=== PATIENT | female | born 1935 | race African-American/Black ===

== ENCOUNTER → 2018-02-21 | Outpatient (CLI) | payer MEDICARE | END | disposition home or self-care (01) | LOC: MAMMO 09:54 | PROVIDERS: ATTEND Specialist | DX: Z12.31 Encounter for screening mammogram for malignant neoplasm of breast (principal) | CPT/HCPCS: 77067 ==

== ENCOUNTER 2018-07-30 12:00 | Emergency (ER) | payer MEDICARE, BC ==
[~2018-07-30] VITALS: Ht 165.1 cm; Wt 66.0 kg
[2018-07-30] MEDS ORDERED: ACETAMINOPHEN 325MG TABLET PO ONE (14:30)
[2018-07-30 17:20] VITALS: BP 178/81
== END 2018-07-30 17:22 | disposition home or self-care (01) ==
LOC: ER 12:00
DX: M54.9 Dorsalgia, unspecified (principal); E11.9 Type 2 diabetes mellitus without complications; E78.00 Pure hypercholesterolemia, unspecified; I10 Essential (primary) hypertension; Z87.09 Personal history of other diseases of the respiratory system; Z87.440 Personal history of urinary (tract) infections; Z98.890 Other specified postprocedural states
CPT/HCPCS: 72110; 72170; 99283

== ENCOUNTER 2018-09-19 09:18 | Inpatient (IN) | payer BC, MEDICARE ==
[~2018-09-19] VITALS: Ht 157.5 cm; Wt 60.0 kg
[2018-09-19 10:57] LABS: BASOPHILS % 0.7 % (0.0-2.0); EOSINOPHILS % 0.3 % (0.0-5.0); HEMATOCRIT. 36.1 % (36.0-48.0); LYMPHOCYTES % 28.3 % (20.0-50.0); MEAN CORPUSCULAR HEMOGLOBIN 30.9 pg (28.0-32.0); MEAN CORPUSCULAR VOLUME 93.4 fL (81.0-99.0); MONOCYTES % 7.6 % (2.0-8.0); NEUTROPHILS % 63.1 % (40.0-76.0); PLATELET 268 x1000/uL (130-400); RED BLOOD CELL COUNT 3.87 mill/uL (4.2-5.4); RED CELL DISTRIBUTION WIDTH 13.7 % (11.6-14.6)
[2018-09-19 11:04] LABS: CHLORIDE 101 mEq/L (98-107)
[2018-09-19] MEDS ORDERED: NITROGLYCERIN 0.4MG TABLET SL SL PRN (11:45)
[2018-09-19] MEDS ORDERED: FUROSEMIDE 40MG/4ML VIAL IV ONE (11:45)
[2018-09-19] MEDS ORDERED: ASPIRIN 81MG TABLET PO ONE (11:45)
[2018-09-19] MEDS ORDERED: DIPHENHYDRAMINE 50MG/ML VIAL IV PRN (14:15)
[2018-09-19] MEDS ORDERED: LORAZEPAM 2MG/ML CPJ IV PRN (14:15)
[2018-09-19] MEDS ORDERED: IPRATROPIUM/ALBUTEROL 0.5-3(2.5)MG/3ML NEB INH PRN (14:15)
[2018-09-19] MEDS ORDERED: HYDROCODONE/ACETAMINOPHEN 5/325MG TABLET PO PRN (14:15)
[2018-09-19] MEDS ORDERED: CLONIDINE 0.1MG TABLET PO PRN (14:15)
[2018-09-19] MEDS ORDERED: ONDANSETRON HCL 4MG/2ML INJ IV PRN (14:15)
[2018-09-19] MEDS ORDERED: GUAIFENESIN 200MG/10ML SUGAR FREE UDC PO PRN (14:15)
[2018-09-19] MEDS ORDERED: MAGNESIUM/ALUMINUM HYDROXIDE/SIMETHICONE 30ML UDC PO PRN (14:15)
[2018-09-19] MEDS ORDERED: NA PHOS,M-B/NA PHOS,DI-BA ENEMA 118ML PR PRN (14:15)
[2018-09-19] MEDS ORDERED: HYDROMORPHONE HCL/PF 2MG/ML CPJ IV PRN (14:15)
[2018-09-19] MEDS ORDERED: DOCUSATE SODIUM 100MG CAPSULE PO PRN (14:15)
[2018-09-19 14:38] VITALS: BP 148/80
[2018-09-19] MEDS: NIFEDIPINE XL 60MG TAB PO SCH (15:51)
[2018-09-19] MEDS: LOSARTAN POTASSIUM 50 MG TABLET PO SCH (15:52)
[2018-09-19] MEDS: FUROSEMIDE 40MG/4ML VIAL IVP SCH (15:52)
[2018-09-19] MEDS: ENOXAPARIN 40MG/0.4ML SYR SUBCUT SCH (15:52)
[2018-09-19 16:00] VITALS: BP 140/57
[2018-09-19 20:00] VITALS: BP 122/46
[2018-09-19] MEDS: CARVEDILOL 3.125 MG TABLET PO SCH (20:52)
[2018-09-20] VITALS (7 sets, daily range): BP systolic 120–165; BP diastolic 50–69
[2018-09-20 06:45] LABS: BASOPHILS % 0.4 % (0.0-2.0); EOSINOPHILS % 1.2 % (0.0-5.0); HEMATOCRIT. 33.2 % (36.0-48.0); HEMOGLOBIN. 11.1 g/dL (12.0-16.0); LYMPHOCYTES % 47.8 % (20.0-50.0); MEAN CORPUSCULAR HEMOGLOBIN 31.1 pg (28.0-32.0); MEAN CORPUSCULAR VOLUME 93.1 fL (81.0-99.0); MEAN PLATELET VOLUME 8.6 fl (7.4-10.4); MONOCYTES % 12.6 % (2.0-8.0); PLATELET 227 x1000/uL (130-400); RED BLOOD CELL COUNT 3.56 mill/uL (4.2-5.4); RED CELL DISTRIBUTION WIDTH 13.5 % (11.6-14.6)
[2018-09-20 07:19] LABS: CHLORIDE 101 mEq/L (98-107)
[2018-09-20 07:35] LABS: LDL CHOLESTEROL 122 mg/dL (5-100)
[2018-09-20 07:37] LABS: HDL CHOLESTEROL 58 mg/dL (40-59); T4 FREE 1.19 ng/dL (0.76-1.46)
[2018-09-20] MEDS: FUROSEMIDE 40MG/4ML VIAL IVP SCH (08:24)
[2018-09-20] MEDS: CARVEDILOL 3.125 MG TABLET PO SCH ×2 (08:25→22:13)
[2018-09-20] MEDS: NIFEDIPINE XL 60MG TAB PO SCH ×2 (08:25→22:14)
[2018-09-20] MEDS: LOSARTAN POTASSIUM 50 MG TABLET PO SCH ×2 (08:25→22:14)
[2018-09-20] MEDS: ASPIRIN 81MG EC TABLET PO SCH (08:26)
[2018-09-20] MEDS ORDERED: FUROSEMIDE 40MG/4ML VIAL IV SCH (09:00)
[2018-09-20] MEDS: BUDESONIDE 0.5MG/2ML NEB HHN SCH ×2 (10:06→20:58)
[2018-09-20] MEDS: INSULIN LISPRO 100 UNITS/ML SUBCUT SCH ×3 (13:10→22:29)
[2018-09-20] MEDS ORDERED: DEXTROSE 50% WATER 50ML SYRINGE IV PRN (13:15)
[2018-09-20] MEDS: IPRATROPIUM/ALBUTEROL 0.5-3(2.5)MG/3ML NEB HHN SCH ×2 (15:25→20:58)
[2018-09-20] MEDS: ENOXAPARIN 40MG/0.4ML SYR SUBCUT SCH (16:00)
[2018-09-20] MEDS: BLOOD SUGAR DIAGNOSTIC STRIP TEST SCH ×2 (18:31→22:29)
[2018-09-21] VITALS: BP 135/51
[2018-09-21] MEDS: ACETYLCYSTEINE 100MG/ML 10% VIAL 4ML INH SCH ×2 (00:56→08:36)
[2018-09-21] MEDS: IPRATROPIUM/ALBUTEROL 0.5-3(2.5)MG/3ML NEB HHN SCH ×2 (00:57→08:37)
[2018-09-21 04:00] VITALS: BP 144/62
[2018-09-21 06:16] LABS: CLARITY URINE TURBID (CLEAR); COLOR URINE YELLOW (YELLOW); KETONES URINE NEGATIVE (NEGATIVE); LEUKOCYTE ESTERASE URINE 3+ (NEGATIVE); NITRITE URINE NEGATIVE (NEGATIVE); OCCULT BLOOD URINE 1+ (NEGATIVE); PROTEIN URINE NEGATIVE (NEGATIVE); SPECIFIC GRAVITY URINE 1.012 (1.005-1.030); UROBILINOGEN URINE 0.2 E.U./dL (0.2-1.0)
[2018-09-21 06:31] LABS: *COCAINE SCREEN URINE NEGATIVE (NEGATIVE)
[2018-09-21 06:32] LABS: *AMPHETAMINES SCREEN URINE NEGATIVE (NEGATIVE); *BARBITURATES SCREEN URINE NEGATIVE (NEGATIVE); *BENZODIAZEPINES SCREEN URINE NEGATIVE (NEGATIVE); CANNABINOID URINE SCREEN NEGATIVE (NEGATIVE); METHADONE URINE SCREEN NEGATIVE (NEGATIVE); OPIATES URINE SCREEN NEGATIVE (NEGATIVE); PHENCYCLIDINE URINE SCREEN NEGATIVE (NEGATIVE)
[2018-09-21] MEDS: BLOOD SUGAR DIAGNOSTIC STRIP TEST SCH (06:56)
[2018-09-21 07:38] LABS: BASOPHILS % 0.5 % (0.0-2.0); EOSINOPHILS % 0.8 % (0.0-5.0); HEMOGLOBIN. 10.9 g/dL (12.0-16.0); LYMPHOCYTES % 44.5 % (20.0-50.0); MEAN CORPUSCULAR VOLUME 93.6 fL (81.0-99.0); MONOCYTES % 13.5 % (2.0-8.0); NEUTROPHILS % 40.7 % (40.0-76.0); PLATELET 245 x1000/uL (130-400); RED BLOOD CELL COUNT 3.52 mill/uL (4.2-5.4); RED CELL DISTRIBUTION WIDTH 13.4 % (11.6-14.6)
[2018-09-21 08:00] VITALS: BP 130/55
[2018-09-21] MEDS: INSULIN LISPRO 100 UNITS/ML SUBCUT SCH (08:10)
[2018-09-21] MEDS: CARVEDILOL 3.125 MG TABLET PO SCH (08:25)
[2018-09-21] MEDS: LOSARTAN POTASSIUM 50 MG TABLET PO SCH (08:25)
[2018-09-21] MEDS: NIFEDIPINE XL 60MG TAB PO SCH (08:26)
[2018-09-21] MEDS: FUROSEMIDE 40MG/4ML VIAL IVP SCH (08:36)
[2018-09-21] MEDS: ASPIRIN 81MG EC TABLET PO SCH (08:36)
[2018-09-21] MEDS: BUDESONIDE 0.5MG/2ML NEB HHN SCH (08:37)
[2018-09-21 09:23] LABS: CHLORIDE 101 mEq/L (98-107)
[2018-09-21 11:22] VITALS: BP 135/58
[2018-09-21 12:00] VITALS: BP 145/49
== END 2018-09-21 13:24 | disposition home or self-care (01) | DRG 291 ==
LOC: ER 10:32 → 7WST 12:09 → EDBEDREQ 12:11 → EDBEDREQTM 12:11 → ENRESERV 13:25 → EDBEDREQ 14:03
PROVIDERS: ADMIT Specialist; ATTEND Specialist
PROC: 02HV33Z Insertion of Infusion Device into Superior Vena Cava, Percutaneous Approach (ICD-10-PCS; principal; 2018-09-16)
PROC: B5181ZA Fluoroscopy of Superior Vena Cava using Low Osmolar Contrast, Guidance (ICD-10-PCS; 2018-09-16)
DX: I11.0 Hypertensive heart disease with heart failure (principal); J96.00 Acute respiratory failure, unspecified whether with hypoxia or hypercapnia; J44.1 Chronic obstructive pulmonary disease with (acute) exacerbation; E27.9 Disorder of adrenal gland, unspecified; I27.20 Pulmonary hypertension, unspecified; I50.33 Acute on chronic diastolic (congestive) heart failure; E11.9 Type 2 diabetes mellitus without complications; I25.10 Atherosclerotic heart disease of native coronary artery without angina pectoris; E78.5 Hyperlipidemia, unspecified; Z82.49 Family history of ischemic heart disease and other diseases of the circulatory system; Z91.14 Patient's other noncompliance with medication regimen; Z98.84 Bariatric surgery status
CPT/HCPCS: 36415; 71045; 80048; 80061; 80305; 82962; 83036; 83735; 83880; 84439; 84443; 84484; 93005; 93306; 94640; 96374; 99291; J1650; J1815; J1940; J7608; J7620; J7626

== ENCOUNTER 2018-10-30 13:32 | Inpatient (IN) | payer BC ==
[~2018-10-30] VITALS: Ht 157.5 cm; Wt 64.0 kg
[2018-10-30] MEDS ORDERED: SODIUM CHLORIDE 0.9% 1000ML BAG (SEPSIS BOLUS) IV ONE (14:30)
[2018-10-30 14:59] LABS: BASOPHILS % 0.1 % (0.0-2.0); HEMOGLOBIN. 12.1 g/dL (12.0-16.0); LYMPHOCYTES % 7.4 % (20.0-50.0); MEAN CORPUSCULAR HEMOGLOBIN 30.8 pg (28.0-32.0); MEAN CORPUSCULAR VOLUME 93.8 fL (81.0-99.0); MEAN PLATELET VOLUME 8.4 fl (7.4-10.4); MONOCYTES % 2.7 % (2.0-8.0); NEUTROPHILS % 89.8 % (40.0-76.0); PLATELET 265 x1000/uL (130-400); RED BLOOD CELL COUNT 3.94 mill/uL (4.2-5.4); RED CELL DISTRIBUTION WIDTH 13.6 % (11.6-14.6)
[2018-10-30 15:08] LABS: D-DIMER 1.92 mg/L FEU (<0.50); PARTIAL THROMBOPLASTIN TIME 24.9 sec (23.4-31.0); PROTHROMBIN TIME 10.2 sec (9.1-11.1)
[2018-10-30 15:15] LABS: CHLORIDE 101 mEq/L (98-107)
[2018-10-30] MEDS ORDERED: CLONIDINE 0.2MG TABLET PO ONE (15:30)
[2018-10-30] MEDS ORDERED: LEVOFLOXACIN 750MG PREMIX 150 ML IV ONE (15:45)
[2018-10-30] MEDS ORDERED: ASPIRIN 325MG EC TABLET PO ONE (15:45)
[2018-10-30 17:35] LABS: CLARITY URINE CLOUDY (CLEAR); COLOR URINE YELLOW (YELLOW); KETONES URINE TRACE (NEGATIVE); LEUKOCYTE ESTERASE URINE 2+ (NEGATIVE); NITRITE URINE NEGATIVE (NEGATIVE); OCCULT BLOOD URINE TRACE (NEGATIVE); PROTEIN URINE 1+ (NEGATIVE); SPECIFIC GRAVITY URINE 1.019 (1.005-1.030); UROBILINOGEN URINE 0.2 E.U./dL (0.2-1.0)
[2018-10-30] MEDS ORDERED: ENOXAPARIN 60MG/0.6ML SYR SUBCUT ONE (17:45)
[2018-10-30] MEDS ORDERED: IOHEXOL-350 100 ML BOTTLE ONE (18:16)
[2018-10-30] MEDS ORDERED: FUROSEMIDE 40MG/4ML VIAL IVP ONE (19:45)
[2018-10-30 22:15] VITALS: BP 120/57
[2018-10-30 22:21] VITALS: BP 120/57
[2018-10-31] VITALS (10 sets, daily range): BP systolic 113–148; BP diastolic 42–69
[2018-10-31] MEDS ORDERED: MORPHINE SULFATE 4 MG/ML CPJ (NOT FOR IM USE) IV PRN
[2018-10-31] MEDS ORDERED: DEXTROSE 50% WATER 50ML SYRINGE IV PRN
[2018-10-31] MEDS: BLOOD SUGAR DIAGNOSTIC STRIP TEST SCH ×4 (01:47→20:48)
[2018-10-31] MEDS: INSULIN LISPRO 100 UNITS/ML SUBCUT SCH ×2 (01:59→20:49)
[2018-10-31] MEDS: NITROGLYCERIN OINT 1GM/INCH UDPKT TD SCH (02:00)
[2018-10-31] MEDS: IPRATROPIUM/ALBUTEROL 0.5-3(2.5)MG/3ML NEB HHN SCH ×5 (04:31→20:54)
[2018-10-31 06:49] LABS: BASOPHILS % 0.7 % (0.0-2.0); EOSINOPHILS % 0.5 % (0.0-5.0); HEMATOCRIT. 31.4 % (36.0-48.0); HEMOGLOBIN. 10.4 g/dL (12.0-16.0); LYMPHOCYTES % 37.7 % (20.0-50.0); MEAN CORPUSCULAR HEMOGLOBIN 30.9 pg (28.0-32.0); MEAN CORPUSCULAR VOLUME 93.2 fL (81.0-99.0); MEAN PLATELET VOLUME 8.2 fl (7.4-10.4); NEUTROPHILS % 52.1 % (40.0-76.0); PLATELET 225 x1000/uL (130-400); RED BLOOD CELL COUNT 3.37 mill/uL (4.2-5.4); RED CELL DISTRIBUTION WIDTH 13.8 % (11.6-14.6)
[2018-10-31 07:06] LABS: CHLORIDE 104 mEq/L (98-107)
[2018-10-31 07:15] LABS: LDL CHOLESTEROL 115 mg/dL (5-100)
[2018-10-31 07:17] LABS: HDL CHOLESTEROL 65 mg/dL (40-59)
[2018-10-31] MEDS ORDERED: METOPROLOL TARTRATE 25MG TABLET PO SCH (09:00)
[2018-10-31] MEDS ORDERED: LEVOFLOXACIN 500MG PREMIX 100 ML IV SCH (09:00)
[2018-10-31] MEDS ORDERED: ENOXAPARIN 80MG/0.8ML SYR SUBCUT SCH (09:00)
[2018-10-31] MEDS ORDERED: ASPIRIN 325MG TABLET PO SCH (09:00)
[2018-10-31] MEDS: LOSARTAN POTASSIUM 25 MG TABLET PO SCH (11:30)
[2018-10-31] MEDS ORDERED: POTASSIUM CHLORIDE 20MEQ TABLET SR PO NR (11:30)
[2018-10-31] MEDS: FUROSEMIDE 40MG/4ML VIAL IVP SCH (13:54)
[2018-10-31] MEDS ORDERED: LEVOFLOXACIN 250MG PREMIX 50 ML IV SCH (18:00)
[2018-10-31] MEDS: METOPROLOL TARTRATE 50MG TABLET PO SCH (20:47)
[2018-10-31] MEDS: AMLODIPINE 5MG TABLET PO SCH (20:47)
[2018-10-31] MEDS ORDERED: ATORVASTATIN CALCIUM 40MG TABLET PO SCH (21:00)
[2018-11-01] VITALS (8 sets, daily range): BP systolic 140–160; BP diastolic 65–96
[2018-11-01] MEDS: IPRATROPIUM/ALBUTEROL 0.5-3(2.5)MG/3ML NEB HHN SCH ×4 (00:18→11:56)
[2018-11-01] MEDS: BLOOD SUGAR DIAGNOSTIC STRIP TEST SCH ×2 (06:40→11:34)
[2018-11-01 06:50] LABS: HEMATOCRIT. 31.8 % (36.0-48.0); HEMOGLOBIN. 10.6 g/dL (12.0-16.0); MEAN CORPUSCULAR HEMOGLOBIN 30.9 pg (28.0-32.0); MEAN CORPUSCULAR VOLUME 93.3 fL (81.0-99.0); MEAN PLATELET VOLUME 8.7 fl (7.4-10.4); PLATELET 230 x1000/uL (130-400); RED BLOOD CELL COUNT 3.41 mill/uL (4.2-5.4)
[2018-11-01 07:36] LABS: CHLORIDE 104 mEq/L (98-107)
[2018-11-01] MEDS: INSULIN LISPRO 100 UNITS/ML SUBCUT SCH ×2 (08:42→13:01)
[2018-11-01] MEDS: FUROSEMIDE 40MG/4ML VIAL IVP SCH (08:44)
[2018-11-01] MEDS ORDERED: ASPIRIN 81MG TABLET PO SCH (09:00)
[2018-11-01] MEDS: AMLODIPINE 5MG TABLET PO SCH (09:00)
[2018-11-01] MEDS: LOSARTAN POTASSIUM 25 MG TABLET PO SCH (09:00)
[2018-11-01] MEDS ORDERED: ENOXAPARIN 40MG/0.4ML SYR SUBCUT SCH (09:00)
[2018-11-01] MEDS: METOPROLOL TARTRATE 50MG TABLET PO SCH (09:00)
[2018-11-01] MEDS: NITROGLYCERIN OINT 1GM/INCH UDPKT TD SCH (10:00)
[2018-11-01 13:30] LABS: PLATELET ESTIMATE NORMAL
== END 2018-11-01 15:21 | disposition home or self-care (01) | DRG 871 ==
LOC: ER 13:32 → 3WST 17:39 → ENRESERV 18:46
PROVIDERS: ADMIT Internal Medicine; ATTEND Internal Medicine
DX: A41.9 Sepsis, unspecified organism (principal); I50.33 Acute on chronic diastolic (congestive) heart failure; I21.4 Non-ST elevation (NSTEMI) myocardial infarction; J18.9 Pneumonia, unspecified organism; N39.0 Urinary tract infection, site not specified; I16.0 Hypertensive urgency; E78.5 Hyperlipidemia, unspecified; E11.9 Type 2 diabetes mellitus without complications; E78.00 Pure hypercholesterolemia, unspecified; I11.0 Hypertensive heart disease with heart failure; I25.10 Atherosclerotic heart disease of native coronary artery without angina pectoris; I25.2 Old myocardial infarction; I27.20 Pulmonary hypertension, unspecified; Z82.49 Family history of ischemic heart disease and other diseases of the circulatory system; Z91.19 Patient's noncompliance with other medical treatment and regimen; Z98.84 Bariatric surgery status
CPT/HCPCS: 36415; 71045; 71275; 80048; 80061; 82962; 83036; 83605; 83735; 84145; 84484; 85379; 87804; 93005; 93306; 94640; 96374; 96375; 99285; J1650; J1815; J1940; J1956; J7030; J7050; J7620; Q9967

== ENCOUNTER 2019-07-01 11:34 | Inpatient (IN) | payer BC ==
[~2019-07-01] VITALS: Ht 157.5 cm; Wt 61.7 kg
[2019-07-01] MEDS ORDERED: ASPIRIN 81MG TABLET PO ONE (13:30)
[2019-07-01 14:49] LABS: BASOPHILS % 0.8 % (0.0-2.0); EOSINOPHILS % 0.6 % (0.0-5.0); HEMATOCRIT. 36.2 % (36.0-48.0); HEMOGLOBIN. 12.1 g/dL (12.0-16.0); LYMPHOCYTES % 29.7 % (20.0-50.0); MEAN CORPUSCULAR HEMOGLOBIN 30.8 pg (28.0-32.0); MEAN CORPUSCULAR VOLUME 92.4 fL (81.0-99.0); MEAN PLATELET VOLUME 8.2 fl (7.4-10.4); MONOCYTES % 4.9 % (2.0-8.0); PLATELET 220 x1000/uL (130-400); RED BLOOD CELL COUNT 3.92 mill/uL (4.2-5.4); RED CELL DISTRIBUTION WIDTH 14.6 % (11.6-14.6)
[2019-07-01 15:00] LABS: CHLORIDE 105 mEq/L (98-107)
[2019-07-01] MEDS ORDERED: CEFTRIAXONE SODIUM 1 G/VIAL IM ONE (16:45)
[2019-07-01] MEDS ORDERED: DOCUSATE SODIUM 100MG CAPSULE PO PRN (20:00)
[2019-07-01] MEDS ORDERED: DIPHENHYDRAMINE 50MG/ML VIAL IV PRN (20:00)
[2019-07-01] MEDS ORDERED: GUAIFENESIN 200MG/10ML SUGAR FREE UDC PO PRN (20:00)
[2019-07-01] MEDS ORDERED: CEFTRIAXONE 1 G PREMIX 50 ML IV SCH (20:00)
[2019-07-01] MEDS ORDERED: ACETAMINOPHEN 325MG TABLET PO PRN (20:00)
[2019-07-01] MEDS ORDERED: ONDANSETRON HCL 4MG/2ML INJ IV PRN (20:00)
[2019-07-01] MEDS ORDERED: MAGNESIUM/ALUMINUM HYDROXIDE/SIMETHICONE 30ML UDC PO PRN (20:00)
[2019-07-01] MEDS ORDERED: IPRATROPIUM/ALBUTEROL 0.5-3(2.5)MG/3ML NEB NEB PRN (20:00)
[2019-07-01] MEDS ORDERED: CLONIDINE 0.1MG TABLET PO PRN (20:00)
[2019-07-01 20:26] LABS: CLARITY URINE CLEAR (CLEAR); COLOR URINE YELLOW (YELLOW); KETONES URINE NEGATIVE (NEGATIVE); LEUKOCYTE ESTERASE URINE 3+ (NEGATIVE); NITRITE URINE NEGATIVE (NEGATIVE); OCCULT BLOOD URINE NEGATIVE (NEGATIVE); PROTEIN URINE TRACE (NEGATIVE); UROBILINOGEN URINE 0.2 E.U./dL (0.2-1.0)
[2019-07-01] MEDS ORDERED: ZOLPIDEM TARTRATE 5MG TABLET PO PRN (21:00)
[2019-07-01 22:05] VITALS: BP 158/72
[2019-07-01] MEDS ORDERED: DEXTROSE 50% WATER 50ML SYRINGE IV PRN ×2 (22:20→22:21)
[2019-07-01] MEDS ORDERED: HYDROCODONE/ACETAMINOPHEN 5/325MG TABLET PO PRN (22:21)
[2019-07-02] VITALS (13 sets, daily range): BP systolic 116–168; BP diastolic 56–88
[2019-07-02] MEDS: BLOOD SUGAR DIAGNOSTIC STRIP TEST SCH ×4 (06:33→21:00)
[2019-07-02] MEDS: INSULIN LISPRO 100 UNITS/ML SUBCUT SCH ×4 (07:20→21:00)
[2019-07-02] MEDS: ENOXAPARIN 40MG/0.4ML SYR SUBCUT SCH (08:50)
[2019-07-02] MEDS: PANTOPRAZOLE SODIUM 40 MG/VIAL IV SCH (08:50)
[2019-07-02 11:36] LABS: BASOPHILS % 0.3 % (0.0-2.0); EOSINOPHILS % 0.7 % (0.0-5.0); HEMATOCRIT. 36.5 % (36.0-48.0); HEMOGLOBIN. 12.1 g/dL (12.0-16.0); LYMPHOCYTES % 33.8 % (20.0-50.0); MEAN CORPUSCULAR HEMOGLOBIN 30.9 pg (28.0-32.0); MEAN CORPUSCULAR VOLUME 93.1 fL (81.0-99.0); MONOCYTES % 6.7 % (2.0-8.0); NEUTROPHILS % 58.5 % (40.0-76.0); PLATELET 223 x1000/uL (130-400); RED BLOOD CELL COUNT 3.92 mill/uL (4.2-5.4); RED CELL DISTRIBUTION WIDTH 15.1 % (11.6-14.6)
[2019-07-02 11:38] LABS: CHLORIDE 104 mEq/L (98-107)
[2019-07-02 11:46] LABS: PHOSPHORUS 3.5 mg/dL (2.5-4.9)
[2019-07-02 11:47] LABS: LDL CHOLESTEROL 126 mg/dL (5-100)
[2019-07-02 11:50] LABS: HDL CHOLESTEROL 72 mg/dL (40-59)
[2019-07-02] MEDS: FUROSEMIDE 40MG/4ML VIAL IVP SCH (12:00)
[2019-07-02] MEDS: LISINOPRIL 10MG TABLET PO SCH ×2 (12:00→22:18)
[2019-07-02] MEDS: HYDRALAZINE HCL 25MG TABLET PO SCH ×2 (14:00→22:17)
[2019-07-02] MEDS ORDERED: METF-414 PO (16:52)
[2019-07-02] MEDS ORDERED: AMLO5TAB4 PO (16:52)
[2019-07-02] MEDS ORDERED: CEFTRIAXONE 1 G PREMIX 50 ML IV SCH (17:00)
[2019-07-02] MEDS: AMLODIPINE 5MG TABLET PO SCH (22:18)
[2019-07-03] VITALS (12 sets, daily range): BP systolic 109–143; BP diastolic 56–71
[2019-07-03] MEDS: HYDRALAZINE HCL 25MG TABLET PO SCH ×2 (06:00→14:00)
[2019-07-03] MEDS: BLOOD SUGAR DIAGNOSTIC STRIP TEST SCH ×2 (06:45→11:56)
[2019-07-03 06:59] LABS: BASOPHILS % 0.5 % (0.0-2.0); EOSINOPHILS % 1.3 % (0.0-5.0); HEMATOCRIT. 32.2 % (36.0-48.0); HEMOGLOBIN. 10.7 g/dL (12.0-16.0); LYMPHOCYTES % 42.3 % (20.0-50.0); MEAN CORPUSCULAR HEMOGLOBIN 30.8 pg (28.0-32.0); MEAN CORPUSCULAR VOLUME 92.4 fL (81.0-99.0); MEAN PLATELET VOLUME 8.8 fl (7.4-10.4); MONOCYTES % 8.3 % (2.0-8.0); NEUTROPHILS % 47.6 % (40.0-76.0); PLATELET 201 x1000/uL (130-400); RED BLOOD CELL COUNT 3.48 mill/uL (4.2-5.4); RED CELL DISTRIBUTION WIDTH 14.5 % (11.6-14.6)
[2019-07-03] MEDS: INSULIN LISPRO 100 UNITS/ML SUBCUT SCH ×2 (07:20→12:11)
[2019-07-03 07:30] LABS: CHLORIDE 107 mEq/L (98-107)
[2019-07-03] MEDS: ENOXAPARIN 40MG/0.4ML SYR SUBCUT SCH (08:29)
[2019-07-03] MEDS: AMLODIPINE 5MG TABLET PO SCH (08:30)
[2019-07-03] MEDS: PANTOPRAZOLE SODIUM 40 MG/VIAL IV SCH (08:30)
[2019-07-03] MEDS: FUROSEMIDE 40MG/4ML VIAL IVP SCH (08:30)
[2019-07-03] MEDS: LISINOPRIL 10MG TABLET PO SCH (09:00)
[2019-07-04] MEDS ORDERED: FAMOTIDINE 20MG TABLET PO SCH (09:00)
== END 2019-07-03 16:41 | disposition home or self-care (01) | DRG 871 ==
LOC: ER 11:34 → 3WST 18:04 → ENRESERV 21:06 → EDBEDREQSVC 21:17 → EDBEDREQTM 21:17 → ENRESERV 21:24
PROVIDERS: ADMIT Family Medicine Adult Medicine; ATTEND Family Medicine Adult Medicine
DX: A41.9 Sepsis, unspecified organism (principal); I21.4 Non-ST elevation (NSTEMI) myocardial infarction; I50.43 Acute on chronic combined systolic (congestive) and diastolic (congestive) heart failure; J18.9 Pneumonia, unspecified organism; J96.00 Acute respiratory failure, unspecified whether with hypoxia or hypercapnia; N39.0 Urinary tract infection, site not specified; I25.10 Atherosclerotic heart disease of native coronary artery without angina pectoris; I11.0 Hypertensive heart disease with heart failure; E11.9 Type 2 diabetes mellitus without complications; E78.5 Hyperlipidemia, unspecified; I27.20 Pulmonary hypertension, unspecified; D71 Functional disorders of polymorphonuclear neutrophils; E78.00 Pure hypercholesterolemia, unspecified; E27.8 Other specified disorders of adrenal gland; I08.1 Rheumatic disorders of both mitral and tricuspid valves; Z79.82 Long term (current) use of aspirin; Z91.14 Patient's other noncompliance with medication regimen; I25.2 Old myocardial infarction; Z91.19 Patient's noncompliance with other medical treatment and regimen; Z82.49 Family history of ischemic heart disease and other diseases of the circulatory system; Z98.84 Bariatric surgery status; Z95.5 Presence of coronary angioplasty implant and graft
CPT/HCPCS: 36415; 71045; 80048; 80061; 81003; 82962; 83036; 83735; 83880; 84100; 84443; 84484; 93005; 93306; 93970; 97161; 99285; C9113; J0696; J1650; J1940

== ENCOUNTER 2019-09-05 16:04 | Emergency (ER) | payer BC ==
[~2019-09-05] VITALS: Ht 157.5 cm; Wt 63.5 kg
[~2019-09-05 16:04] MED LIST: AMLO5TAB4 PO; METF-414 PO
[2019-09-06 03:42] VITALS: BP 164/64
== END 2019-09-06 03:43 | disposition home or self-care (01) ==
LOC: ER 16:04
DX: M47.896 Other spondylosis, lumbar region (principal); I31.3 Pericardial effusion (noninflammatory); J90 Pleural effusion, not elsewhere classified; M48.07 Spinal stenosis, lumbosacral region; D21.9 Benign neoplasm of connective and other soft tissue, unspecified; N20.0 Calculus of kidney; I10 Essential (primary) hypertension; E11.9 Type 2 diabetes mellitus without complications
CPT/HCPCS: 72131; 99284

== ENCOUNTER 2020-05-20 11:20 | Inpatient (IN) | payer BC ==
[~2020-05-20] VITALS: Ht 157.5 cm; Wt 62.8 kg
[2020-05-20 12:30] LABS: BASOPHILS % 0.4 % (0.0-2.0); HEMATOCRIT. 34.1 % (36.0-48.0); HEMOGLOBIN. 10.9 g/dL (12.0-16.0); LYMPHOCYTES % 11.4 % (20.0-50.0); MEAN CORPUSCULAR HEMOGLOBIN 30.8 pg (28.0-32.0); MEAN CORPUSCULAR VOLUME 96.8 fL (81.0-99.0); MEAN PLATELET VOLUME 8.3 fl (7.4-10.4); MONOCYTES % 5.7 % (2.0-8.0); NEUTROPHILS % 82.5 % (40.0-76.0); PLATELET 211 x1000/uL (130-400); RED BLOOD CELL COUNT 3.53 mill/uL (4.2-5.4); RED CELL DISTRIBUTION WIDTH 17.1 % (11.6-14.6)
[2020-05-20 12:39] LABS: CHLORIDE 108 mEq/L (98-107)
[2020-05-20 12:47] LABS: D-DIMER 2.27 mg/L FEU (<0.50); INR 1.1; PROTHROMBIN TIME 11.1 sec (9.6-11.0)
[2020-05-20 12:50] LABS: CREATINE KINASE 207 IU/L (26-192)
[2020-05-20 12:53] LABS: BG BASE EXCESS -0.3 mmol/L (-2.0-2.0); BG CARBOXYHEMOGLOBIN 0.5 % (0.5-1.5); BG DEOXYHEMOGLOBIN 4.3 % (0.0-5.0); BG FRACTION INSPIRED OXYGEN 32; BG HCO3 ACT 24.7 mmol/L (22.0-26.0); BG METHEMOGLOBIN 0.3 % (0.0-1.5); BG OXYGEN SATURATION 95.7 % (92.0-98.5); BG OXYHEMOGLOBIN 94.9 % (94.0-97.0); BG PH 7.388 (7.350-7.450); BG PO2 84.4 mmHg (75.0-100.0); BG SAMPLE SITE RIGHT RADIAL; BG TOTAL HEMOGLOBIN 10.8 g/dL (12.0-18.0); BG VENT MODE NASAL CANNULA
[2020-05-20 12:57] LABS: C REACTIVE PROTEIN QUANT 4.2 mg/L (0.0-3.0)
[2020-05-20] MEDS: FUROSEMIDE 40MG/4ML VIAL IVP SCH ×2 (13:37→19:59)
[2020-05-20] MEDS: ASPIRIN 81MG TABLET PO SCH (13:37)
[2020-05-20] MEDS ORDERED: LEVOFLOXACIN 750MG PREMIX 150 ML IV ONE (13:45)
[2020-05-20] MEDS ORDERED: ASPIRIN 325MG EC TABLET PO ONE (13:45)
[2020-05-20] MEDS: LISINOPRIL 5MG TABLET PO SCH (15:03)
[2020-05-20] MEDS ORDERED: ACETAMINOPHEN 325MG TABLET PO PRN (16:15)
[2020-05-20] MEDS ORDERED: ONDANSETRON HCL 4MG/2ML INJ IV PRN (16:15)
[2020-05-20] MEDS ORDERED: TRAZODONE HCL 50MG TABLET PO PRN (16:15)
[2020-05-20] MEDS ORDERED: CLONIDINE 0.1MG TABLET PO PRN (16:30)
[2020-05-20] MEDS ORDERED: DEXTROSE 50% WATER 50ML SYRINGE IV PRN (16:30)
[2020-05-20] MEDS: CARVEDILOL 6.25 MG TABLET PO SCH (17:15)
[2020-05-20] MEDS: BLOOD SUGAR DIAGNOSTIC STRIP TEST SCH ×2 (17:45→23:40)
[2020-05-20] MEDS: INSULIN LISPRO 100 UNITS/ML SUBCUT SCH (21:00)
[2020-05-20 21:40] VITALS: BP 135/61
[2020-05-20] MEDS: HYDRALAZINE HCL 25MG TABLET PO SCH (23:40)
[2020-05-20] MEDS: HEPARIN 5000 UNITS/ML VIAL SUBCUT SCH (23:41)
[2020-05-20] MEDS: ATORVASTATIN CALCIUM 40MG TABLET PO SCH (23:41)
[2020-05-21] VITALS: BP 138/70
[2020-05-21 04:00] VITALS: BP 100/70
[2020-05-21 05:56] LABS: BASOPHILS % 0.6 % (0.0-2.0); EOSINOPHILS % 0.8 % (0.0-5.0); HEMATOCRIT. 27.3 % (36.0-48.0); HEMOGLOBIN. 9.1 g/dL (12.0-16.0); LYMPHOCYTES % 27.3 % (20.0-50.0); MEAN CORPUSCULAR HEMOGLOBIN 31.3 pg (28.0-32.0); MEAN CORPUSCULAR VOLUME 94.2 fL (81.0-99.0); MEAN PLATELET VOLUME 8.6 fl (7.4-10.4); MONOCYTES % 10.4 % (2.0-8.0); NEUTROPHILS % 60.9 % (40.0-76.0); PLATELET 190 x1000/uL (130-400); RED CELL DISTRIBUTION WIDTH 16.5 % (11.6-14.6)
[2020-05-21 05:59] LABS: CHLORIDE 108 mEq/L (98-107)
[2020-05-21] MEDS: HYDRALAZINE HCL 25MG TABLET PO SCH (06:09)
[2020-05-21] MEDS: BLOOD SUGAR DIAGNOSTIC STRIP TEST SCH ×4 (07:26→20:13)
[2020-05-21] MEDS: INSULIN LISPRO 100 UNITS/ML SUBCUT SCH ×4 (07:27→20:14)
[2020-05-21 08:00] VITALS: BP 100/62
[2020-05-21] MEDS: LISINOPRIL 5MG TABLET PO SCH (08:32)
[2020-05-21] MEDS: CARVEDILOL 6.25 MG TABLET PO SCH (08:32)
[2020-05-21] MEDS: FUROSEMIDE 40MG/4ML VIAL IVP SCH ×2 (08:33→16:36)
[2020-05-21] MEDS: ASPIRIN 81MG TABLET PO SCH (08:33)
[2020-05-21] MEDS: HEPARIN 5000 UNITS/ML VIAL SUBCUT SCH ×2 (08:33→20:14)
[2020-05-21 12:00] VITALS: BP 103/68
[2020-05-21 16:00] VITALS: BP 133/72
[2020-05-21 20:00] VITALS: BP 148/65
[2020-05-21] MEDS: ATORVASTATIN CALCIUM 40MG TABLET PO SCH (20:22)
[2020-05-21] MEDS ORDERED: CARVEDILOL 3.125 MG TABLET PO SCH (21:00)
[2020-05-22] VITALS: BP 138/57
[2020-05-22 04:00] VITALS: BP 144/59
[2020-05-22] MEDS: BLOOD SUGAR DIAGNOSTIC STRIP TEST SCH ×4 (06:33→20:14)
[2020-05-22] MEDS: INSULIN LISPRO 100 UNITS/ML SUBCUT SCH ×4 (06:34→22:23)
[2020-05-22 06:48] LABS: EOSINOPHILS % 2.2 % (0.0-5.0); HEMATOCRIT. 30.4 % (36.0-48.0); HEMOGLOBIN. 10.2 g/dL (12.0-16.0); LYMPHOCYTES % 30.7 % (20.0-50.0); MEAN CORPUSCULAR HEMOGLOBIN 31.5 pg (28.0-32.0); MEAN CORPUSCULAR VOLUME 93.6 fL (81.0-99.0); MEAN PLATELET VOLUME 8.3 fl (7.4-10.4); MONOCYTES % 11.8 % (2.0-8.0); NEUTROPHILS % 54.3 % (40.0-76.0); PLATELET 217 x1000/uL (130-400); RED BLOOD CELL COUNT 3.25 mill/uL (4.2-5.4); RED CELL DISTRIBUTION WIDTH 16.7 % (11.6-14.6)
[2020-05-22 07:17] LABS: CHLORIDE 106 mEq/L (98-107)
[2020-05-22 08:00] VITALS: BP 104/65
[2020-05-22] MEDS: ASPIRIN 81MG TABLET PO SCH (08:08)
[2020-05-22] MEDS: FUROSEMIDE 40MG/4ML VIAL IVP SCH ×2 (08:08→16:51)
[2020-05-22] MEDS: LISINOPRIL 5MG TABLET PO SCH (08:08)
[2020-05-22] MEDS: HEPARIN 5000 UNITS/ML VIAL SUBCUT SCH ×2 (08:09→20:13)
[2020-05-22 12:00] VITALS: BP 158/68
[2020-05-22 16:00] VITALS: BP 144/54
[2020-05-22 20:00] VITALS: BP 148/47
[2020-05-22] MEDS: ATORVASTATIN CALCIUM 40MG TABLET PO SCH ×2 (20:13→20:36)
[2020-05-22] MEDS: CARVEDILOL 3.125 MG TABLET PO SCH (20:13)
[2020-05-23] VITALS (7 sets, daily range): BP systolic 103–168; BP diastolic 56–89
[2020-05-23] MEDS: BLOOD SUGAR DIAGNOSTIC STRIP TEST SCH ×4 (06:42→20:57)
[2020-05-23 07:04] LABS: BASOPHILS % 0.8 % (0.0-2.0); EOSINOPHILS % 2.3 % (0.0-5.0); HEMATOCRIT. 31.4 % (36.0-48.0); HEMOGLOBIN. 10.4 g/dL (12.0-16.0); LYMPHOCYTES % 32.8 % (20.0-50.0); MEAN CORPUSCULAR HEMOGLOBIN 30.9 pg (28.0-32.0); MEAN CORPUSCULAR VOLUME 93.5 fL (81.0-99.0); MEAN PLATELET VOLUME 8.5 fl (7.4-10.4); MONOCYTES % 9.6 % (2.0-8.0); NEUTROPHILS % 54.5 % (40.0-76.0); PLATELET 237 x1000/uL (130-400); RED BLOOD CELL COUNT 3.36 mill/uL (4.2-5.4); RED CELL DISTRIBUTION WIDTH 16.8 % (11.6-14.6)
[2020-05-23] MEDS: INSULIN LISPRO 100 UNITS/ML SUBCUT SCH ×4 (07:50→21:12)
[2020-05-23] MEDS: LISINOPRIL 5MG TABLET PO SCH ×2 (09:00→09:23)
[2020-05-23] MEDS: CARVEDILOL 3.125 MG TABLET PO SCH ×3 (09:00→20:56)
[2020-05-23 09:12] LABS: CHLORIDE 103 mEq/L (98-107)
[2020-05-23] MEDS: FUROSEMIDE 40MG/4ML VIAL IVP SCH ×2 (09:17→17:22)
[2020-05-23] MEDS: ASPIRIN 81MG TABLET PO SCH (09:18)
[2020-05-23] MEDS: HEPARIN 5000 UNITS/ML VIAL SUBCUT SCH ×2 (09:26→20:57)
[2020-05-23] MEDS: ATORVASTATIN CALCIUM 40MG TABLET PO SCH (20:54)
[2020-05-24 00:25] VITALS: BP 135/47
[2020-05-24 04:00] VITALS: BP 126/60
[2020-05-24 07:15] LABS: BASOPHILS % 0.9 % (0.0-2.0); HEMATOCRIT. 30.8 % (36.0-48.0); HEMOGLOBIN. 10.2 g/dL (12.0-16.0); LYMPHOCYTES % 43.2 % (20.0-50.0); MEAN CORPUSCULAR VOLUME 93.6 fL (81.0-99.0); MEAN PLATELET VOLUME 8.6 fl (7.4-10.4); MONOCYTES % 12.1 % (2.0-8.0); NEUTROPHILS % 41.8 % (40.0-76.0); PLATELET 236 x1000/uL (130-400); RED BLOOD CELL COUNT 3.29 mill/uL (4.2-5.4); RED CELL DISTRIBUTION WIDTH 16.5 % (11.6-14.6)
[2020-05-24] MEDS: BLOOD SUGAR DIAGNOSTIC STRIP TEST SCH ×4 (07:17→21:20)
[2020-05-24] MEDS: INSULIN LISPRO 100 UNITS/ML SUBCUT SCH ×4 (07:50→21:30)
[2020-05-24 08:00] VITALS: BP 125/61
[2020-05-24 08:02] LABS: CHLORIDE 103 mEq/L (98-107)
[2020-05-24] MEDS: CARVEDILOL 3.125 MG TABLET PO SCH ×2 (09:00→21:19)
[2020-05-24] MEDS: LISINOPRIL 5MG TABLET PO SCH (09:00)
[2020-05-24] MEDS: ASPIRIN 81MG TABLET PO SCH (11:33)
[2020-05-24] MEDS: FUROSEMIDE 40MG/4ML VIAL IVP SCH ×2 (11:34→18:51)
[2020-05-24 12:00] VITALS: BP 127/59
[2020-05-24] MEDS: HEPARIN 5000 UNITS/ML VIAL SUBCUT SCH ×2 (12:15→21:20)
[2020-05-24 16:00] VITALS: BP 130/62
[2020-05-24 20:00] VITALS: BP 154/61
[2020-05-24] MEDS: ATORVASTATIN CALCIUM 40MG TABLET PO SCH (21:00)
[2020-05-25 04:00] VITALS: BP 151/64
[2020-05-25 06:31] LABS: EOSINOPHILS % 2.1 % (0.0-5.0); HEMATOCRIT. 29.8 % (36.0-48.0); LYMPHOCYTES % 39.3 % (20.0-50.0); MEAN CORPUSCULAR HEMOGLOBIN 31.5 pg (28.0-32.0); MEAN CORPUSCULAR VOLUME 93.9 fL (81.0-99.0); MEAN PLATELET VOLUME 8.4 fl (7.4-10.4); MONOCYTES % 11.2 % (2.0-8.0); NEUTROPHILS % 45.4 % (40.0-76.0); PLATELET 226 x1000/uL (130-400); RED BLOOD CELL COUNT 3.18 mill/uL (4.2-5.4); RED CELL DISTRIBUTION WIDTH 16.5 % (11.6-14.6)
[2020-05-25] MEDS ORDERED: SENNOSIDES/DOCUSATE SOD 8.6/50MG TABLET PO PRN (07:45)
[2020-05-25] MEDS ORDERED: MAGNESIUM HYDROXIDE 400MG/5ML 30ML UDC PO PRN (07:45)
[2020-05-25] MEDS: INSULIN LISPRO 100 UNITS/ML SUBCUT SCH (07:50)
[2020-05-25 08:08] LABS: CHLORIDE 104 mEq/L (98-107)
[2020-05-25] MEDS ORDERED: DOCUSATE SODIUM 250MG CAPSULE PO SCH (09:00)
[2020-05-25] MEDS: HEPARIN 5000 UNITS/ML VIAL SUBCUT SCH (09:00)
[2020-05-25] MEDS: ASPIRIN 81MG TABLET PO SCH (10:36)
[2020-05-25] MEDS: FUROSEMIDE 40MG/4ML VIAL IVP SCH (10:37)
[2020-05-25] MEDS: CARVEDILOL 3.125 MG TABLET PO SCH (10:37)
[2020-05-25] MEDS: LISINOPRIL 5MG TABLET PO SCH (10:37)
[2020-05-25] MEDS ORDERED: LOSA50TA41 MT (11:32)
[2020-05-25] MEDS ORDERED: SENN-3 PO (11:32)
[2020-05-25] MEDS ORDERED: MOM PO (11:32)
[2020-05-25] MEDS ORDERED: LIP40 PO (11:32)
[2020-05-25] MEDS ORDERED: FURO-151 MT (11:32)
[2020-05-25] MEDS ORDERED: ASPI-1160 PO (11:32)
[2020-05-25] MEDS ORDERED: COR3 PO (11:32)
[2020-05-25] MEDS ORDERED: DOCU250C14 PO (11:32)
[2020-05-25 11:46] VITALS: BP 117/72
[2020-05-25] MEDS: BLOOD SUGAR DIAGNOSTIC STRIP TEST SCH (12:20)
== END 2020-05-25 18:10 | disposition home health service (06) | DRG 280 ==
LOC: ER 11:20 → 7WST 14:15 → EDBEDREQ 14:16 → ENRESERV 20:24 → 6WST 05-22 22:32
PROVIDERS: ADMIT Internal Medicine; ATTEND Internal Medicine
DX: I11.0 Hypertensive heart disease with heart failure (principal); I21.4 Non-ST elevation (NSTEMI) myocardial infarction; J96.01 Acute respiratory failure with hypoxia; I31.3 Pericardial effusion (noninflammatory); I50.43 Acute on chronic combined systolic (congestive) and diastolic (congestive) heart failure; I42.9 Cardiomyopathy, unspecified; E11.9 Type 2 diabetes mellitus without complications; E27.9 Disorder of adrenal gland, unspecified; E78.5 Hyperlipidemia, unspecified; Z20.828 Contact with and (suspected) exposure to other viral communicable diseases; I36.1 Nonrheumatic tricuspid (valve) insufficiency; I25.10 Atherosclerotic heart disease of native coronary artery without angina pectoris; I27.21 Secondary pulmonary arterial hypertension; J44.9 Chronic obstructive pulmonary disease, unspecified; Z91.14 Patient's other noncompliance with medication regimen; Z95.5 Presence of coronary angioplasty implant and graft; Z98.84 Bariatric surgery status; Z82.49 Family history of ischemic heart disease and other diseases of the circulatory system; Z91.19 Patient's noncompliance with other medical treatment and regimen; Z79.82 Long term (current) use of aspirin; Z79.899 Other long term (current) drug therapy; Z79.84 Long term (current) use of oral hypoglycemic drugs
CPT/HCPCS: 36415; 36600; 71045; 76604; 80053; 80061; 82375; 82550; 82728; 82805; 82962; 83036; 83605; 83615; 83735; 83880; 84145; 84484; 85025; 85379; 85384; 86140; 87426; 87635; 93005; 93306; 97162; 97535; 99291; J1644; J1815; J1940; J1956

== ENCOUNTER 2021-02-04 23:13 | Inpatient (IN) | payer BC ==
[~2021-02-04] VITALS: Ht 165.1 cm; Wt 65.8 kg
[~2021-02-04 23:13] MED LIST changes: -AMLO5TAB4 PO; +ASPI-1160 PO; +COR3 PO; +DOCU250C14 PO; +FURO-151 MT; +LIP40 PO; +LOSA50TA41 MT; +MOM PO; +SENN-3 PO
[2021-02-04 23:30] VITALS: BP 110/62
[2021-02-05] MEDS ORDERED: MORPHINE SULFATE 2 MG/ML CPJ (NOT FOR IM USE) IV PRN (00:15)
[2021-02-05] MEDS ORDERED: CLONIDINE 0.1MG TABLET PO PRN (00:15)
[2021-02-05] MEDS ORDERED: ONDANSETRON HCL 4MG/2ML INJ IV PRN (00:15)
[2021-02-05] MEDS ORDERED: LORAZEPAM 2MG/ML CPJ IV PRN (00:15)
[2021-02-05] MEDS ORDERED: HYDROCODONE/ACETAMINOPHEN 5/325MG TABLET PO PRN (00:15)
[2021-02-05] MEDS ORDERED: DEXTROSE 50% WATER 50ML SYRINGE IV PRN (00:30)
[2021-02-05] MEDS: BLOOD SUGAR DIAGNOSTIC STRIP TEST SCH ×4 (05:41→20:38)
[2021-02-05] MEDS: FUROSEMIDE 40MG/4ML VIAL IVP SCH ×2 (06:40→17:20)
[2021-02-05] MEDS: INSULIN LISPRO 100 UNITS/ML SUBCUT SCH ×5 (06:47→21:20)
[2021-02-05 06:52] LABS: BASOPHILS % 1.1 % (0.0-2.0); EOSINOPHILS % 0.6 % (0.0-5.0); HEMATOCRIT. 34.9 % (36.0-48.0); HEMOGLOBIN. 11.4 g/dL (12.0-16.0); LYMPHOCYTES % 22.5 % (20.0-50.0); MEAN CORPUSCULAR HEMOGLOBIN 30.9 pg (28.0-32.0); MEAN CORPUSCULAR VOLUME 94.7 fL (81.0-99.0); MEAN PLATELET VOLUME 9.1 fl (7.4-10.4); MONOCYTES % 7.4 % (2.0-8.0); NEUTROPHILS % 68.4 % (40.0-76.0); PLATELET 177 x1000/uL (130-400); RED BLOOD CELL COUNT 3.68 mill/uL (4.2-5.4); RED CELL DISTRIBUTION WIDTH 17.3 % (11.6-14.6)
[2021-02-05 07:11] LABS: CHLORIDE 99 mEq/L (98-107)
[2021-02-05] MEDS: AMLODIPINE 5MG TABLET PO SCH (08:00)
[2021-02-05] MEDS: DOCUSATE SODIUM 100MG CAPSULE PO SCH ×2 (08:01→17:20)
[2021-02-05] MEDS: CARVEDILOL 6.25 MG TABLET PO SCH ×2 (08:01→20:37)
[2021-02-05] MEDS: LISINOPRIL 10MG TABLET PO SCH (08:01)
[2021-02-05] MEDS: ASPIRIN 81MG TABLET PO SCH (08:01)
[2021-02-05 08:07] VITALS: BP 124/69
[2021-02-05 20:00] VITALS: BP 143/71
[2021-02-05] MEDS: ENOXAPARIN 40MG/0.4ML SYR SUBCUT SCH (20:37)
[2021-02-05] MEDS: POLYETHYLENE GLYCOL 3350 (17GM) 1 DOSE PACK PO SCH (20:38)
[2021-02-06] MEDS: BLOOD SUGAR DIAGNOSTIC STRIP TEST SCH ×4 (06:05→21:00)
[2021-02-06] MEDS: INSULIN LISPRO 100 UNITS/ML SUBCUT SCH ×4 (06:12→22:13)
[2021-02-06] MEDS: FUROSEMIDE 40MG/4ML VIAL IVP SCH ×2 (06:16→17:03)
[2021-02-06 06:57] LABS: BASOPHILS % 0.8 % (0.0-2.0); EOSINOPHILS % 0.4 % (0.0-5.0); HEMATOCRIT. 30.4 % (36.0-48.0); LYMPHOCYTES % 21.9 % (20.0-50.0); MEAN CORPUSCULAR VOLUME 93.8 fL (81.0-99.0); MEAN PLATELET VOLUME 9.1 fl (7.4-10.4); NEUTROPHILS % 65.9 % (40.0-76.0); PLATELET 172 x1000/uL (130-400); RED BLOOD CELL COUNT 3.24 mill/uL (4.2-5.4); RED CELL DISTRIBUTION WIDTH 16.9 % (11.6-14.6)
[2021-02-06 07:03] LABS: CHLORIDE 98 mEq/L (98-107)
[2021-02-06 08:20] VITALS: BP 135/54
[2021-02-06] MEDS: AMLODIPINE 5MG TABLET PO SCH (08:21)
[2021-02-06] MEDS: ASPIRIN 81MG TABLET PO SCH (08:21)
[2021-02-06] MEDS: DOCUSATE SODIUM 100MG CAPSULE PO SCH ×2 (08:21→17:03)
[2021-02-06] MEDS: CARVEDILOL 6.25 MG TABLET PO SCH ×2 (08:21→21:00)
[2021-02-06] MEDS: LISINOPRIL 10MG TABLET PO SCH (08:22)
[2021-02-06 20:00] VITALS: BP 103/56
[2021-02-06] MEDS: POLYETHYLENE GLYCOL 3350 (17GM) 1 DOSE PACK PO SCH (21:00)
[2021-02-06] MEDS: ENOXAPARIN 40MG/0.4ML SYR SUBCUT SCH (22:03)
[2021-02-07 06:11] LABS: BASOPHILS % 0.6 % (0.0-2.0); EOSINOPHILS % 0.6 % (0.0-5.0); HEMATOCRIT. 32.2 % (36.0-48.0); HEMOGLOBIN. 10.5 g/dL (12.0-16.0); MEAN CORPUSCULAR HEMOGLOBIN 30.6 pg (28.0-32.0); MEAN PLATELET VOLUME 8.8 fl (7.4-10.4); MONOCYTES % 11.8 % (2.0-8.0); PLATELET 190 x1000/uL (130-400); RED BLOOD CELL COUNT 3.42 mill/uL (4.2-5.4); RED CELL DISTRIBUTION WIDTH 17.1 % (11.6-14.6)
[2021-02-07 06:18] LABS: CHLORIDE 97 mEq/L (98-107)
[2021-02-07] MEDS: BLOOD SUGAR DIAGNOSTIC STRIP TEST SCH ×4 (06:26→20:58)
[2021-02-07] MEDS: FUROSEMIDE 40MG/4ML VIAL IVP SCH ×2 (06:27→17:10)
[2021-02-07] MEDS: INSULIN LISPRO 100 UNITS/ML SUBCUT SCH ×4 (06:35→20:49)
[2021-02-07 07:39] VITALS: BP 130/53
[2021-02-07] MEDS: CARVEDILOL 6.25 MG TABLET PO SCH ×2 (08:38→20:47)
[2021-02-07] MEDS: DOCUSATE SODIUM 100MG CAPSULE PO SCH ×2 (08:38→17:10)
[2021-02-07] MEDS: ASPIRIN 81MG TABLET PO SCH (08:38)
[2021-02-07] MEDS: LISINOPRIL 10MG TABLET PO SCH (08:39)
[2021-02-07] MEDS: AMLODIPINE 5MG TABLET PO SCH (08:39)
[2021-02-07 20:00] VITALS: BP 118/55
[2021-02-07] MEDS: ENOXAPARIN 40MG/0.4ML SYR SUBCUT SCH (20:47)
[2021-02-07] MEDS: POLYETHYLENE GLYCOL 3350 (17GM) 1 DOSE PACK PO SCH (20:58)
[2021-02-08 06:00] VITALS: BP 131/47
[2021-02-08] MEDS: INSULIN LISPRO 100 UNITS/ML SUBCUT SCH ×4 (06:26→21:00)
[2021-02-08] MEDS: BLOOD SUGAR DIAGNOSTIC STRIP TEST SCH ×4 (06:27→21:46)
[2021-02-08] MEDS: FUROSEMIDE 40MG/4ML VIAL IVP SCH ×2 (06:27→17:24)
[2021-02-08 07:57] VITALS: BP 104/59
[2021-02-08] MEDS: AMLODIPINE 5MG TABLET PO SCH (08:21)
[2021-02-08] MEDS: CARVEDILOL 6.25 MG TABLET PO SCH ×2 (08:21→21:45)
[2021-02-08] MEDS: LISINOPRIL 10MG TABLET PO SCH (08:21)
[2021-02-08] MEDS: ASPIRIN 81MG TABLET PO SCH (08:21)
[2021-02-08] MEDS: DOCUSATE SODIUM 100MG CAPSULE PO SCH ×2 (08:23→16:20)
[2021-02-08 20:00] VITALS: BP 158/53
[2021-02-08] MEDS: ENOXAPARIN 40MG/0.4ML SYR SUBCUT SCH (21:42)
[2021-02-08] MEDS: POLYETHYLENE GLYCOL 3350 (17GM) 1 DOSE PACK PO SCH (21:45)
[2021-02-09] MEDS: BLOOD SUGAR DIAGNOSTIC STRIP TEST SCH ×4 (06:26→21:00)
[2021-02-09] MEDS: FUROSEMIDE 40MG/4ML VIAL IVP SCH ×2 (06:48→17:15)
[2021-02-09] MEDS: INSULIN LISPRO 100 UNITS/ML SUBCUT SCH ×4 (06:57→22:56)
[2021-02-09 07:15] LABS: BASOPHILS % 0.5 % (0.0-2.0); EOSINOPHILS % 0.5 % (0.0-5.0); HEMATOCRIT. 30.2 % (36.0-48.0); HEMOGLOBIN. 10.3 g/dL (12.0-16.0); LYMPHOCYTES % 23.8 % (20.0-50.0); MEAN CORPUSCULAR HEMOGLOBIN 31.6 pg (28.0-32.0); MEAN PLATELET VOLUME 8.6 fl (7.4-10.4); NEUTROPHILS % 62.2 % (40.0-76.0); PLATELET 203 x1000/uL (130-400); RED BLOOD CELL COUNT 3.25 mill/uL (4.2-5.4)
[2021-02-09 07:41] LABS: CHLORIDE 99 mEq/L (98-107)
[2021-02-09 08:23] VITALS: BP 156/53
[2021-02-09] MEDS: ASPIRIN 81MG TABLET PO SCH (09:17)
[2021-02-09] MEDS: DOCUSATE SODIUM 100MG CAPSULE PO SCH ×2 (09:18→18:06)
[2021-02-09] MEDS: LISINOPRIL 10MG TABLET PO SCH (09:19)
[2021-02-09] MEDS: CARVEDILOL 6.25 MG TABLET PO SCH ×2 (09:19→22:58)
[2021-02-09] MEDS: AMLODIPINE 5MG TABLET PO SCH (09:20)
[2021-02-09 20:00] VITALS: BP 145/48
[2021-02-09] MEDS: POLYETHYLENE GLYCOL 3350 (17GM) 1 DOSE PACK PO SCH (21:00)
[2021-02-09] MEDS: ENOXAPARIN 40MG/0.4ML SYR SUBCUT SCH (22:58)
[2021-02-10] MEDS: FUROSEMIDE 40MG/4ML VIAL IVP SCH ×2 (06:09→17:57)
[2021-02-10] MEDS: INSULIN LISPRO 100 UNITS/ML SUBCUT SCH ×4 (06:17→21:07)
[2021-02-10] MEDS: BLOOD SUGAR DIAGNOSTIC STRIP TEST SCH ×4 (06:20→21:00)
[2021-02-10] MEDS: DOCUSATE SODIUM 100MG CAPSULE PO SCH ×2 (08:29→17:36)
[2021-02-10] MEDS: ASPIRIN 81MG TABLET PO SCH (08:29)
[2021-02-10] MEDS: AMLODIPINE 5MG TABLET PO SCH (08:29)
[2021-02-10] MEDS: LISINOPRIL 10MG TABLET PO SCH (08:29)
[2021-02-10] MEDS: CARVEDILOL 6.25 MG TABLET PO SCH ×2 (08:29→20:59)
[2021-02-10 20:00] VITALS: BP 119/76
[2021-02-10] MEDS: ENOXAPARIN 40MG/0.4ML SYR SUBCUT SCH (20:59)
[2021-02-10] MEDS: POLYETHYLENE GLYCOL 3350 (17GM) 1 DOSE PACK PO SCH (20:59)
[2021-02-11] MEDS: BLOOD SUGAR DIAGNOSTIC STRIP TEST SCH ×4 (05:39→20:36)
[2021-02-11] MEDS: FUROSEMIDE 40MG/4ML VIAL IVP SCH ×2 (05:40→17:02)
[2021-02-11] MEDS: INSULIN LISPRO 100 UNITS/ML SUBCUT SCH ×4 (07:18→20:53)
[2021-02-11 08:08] VITALS: BP 140/59
[2021-02-11] MEDS: DOCUSATE SODIUM 100MG CAPSULE PO SCH ×2 (08:12→16:27)
[2021-02-11] MEDS: ASPIRIN 81MG TABLET PO SCH (08:12)
[2021-02-11] MEDS: AMLODIPINE 5MG TABLET PO SCH (08:13)
[2021-02-11] MEDS: LISINOPRIL 10MG TABLET PO SCH (08:13)
[2021-02-11] MEDS: CARVEDILOL 6.25 MG TABLET PO SCH ×2 (08:13→20:39)
[2021-02-11 14:19] LABS: 25-HYDROXY VITAMIN D3 17 ng/mL (.)
[2021-02-11] MEDS: ERGOCALCIFEROL 50000UNITS CAPSULE PO SCH (17:02)
[2021-02-11 20:00] VITALS: BP 119/48
[2021-02-11] MEDS: POLYETHYLENE GLYCOL 3350 (17GM) 1 DOSE PACK PO SCH (20:36)
[2021-02-11] MEDS: ENOXAPARIN 40MG/0.4ML SYR SUBCUT SCH (20:38)
[2021-02-12] MEDS: BLOOD SUGAR DIAGNOSTIC STRIP TEST SCH ×4 (06:26→21:00)
[2021-02-12] MEDS: INSULIN LISPRO 100 UNITS/ML SUBCUT SCH ×4 (06:28→21:00)
[2021-02-12] MEDS: FUROSEMIDE 40MG/4ML VIAL IVP SCH ×2 (06:29→17:43)
[2021-02-12 06:58] LABS: BASOPHILS % 0.8 % (0.0-2.0); CHLORIDE 100 mEq/L (98-107); EOSINOPHILS % 0.4 % (0.0-5.0); HEMATOCRIT. 29.2 % (36.0-48.0); HEMOGLOBIN. 9.9 g/dL (12.0-16.0); LYMPHOCYTES % 34.5 % (20.0-50.0); MEAN CORPUSCULAR HEMOGLOBIN 31.6 pg (28.0-32.0); MEAN CORPUSCULAR VOLUME 92.8 fL (81.0-99.0); MEAN PLATELET VOLUME 8.3 fl (7.4-10.4); MONOCYTES % 8.7 % (2.0-8.0); NEUTROPHILS % 55.6 % (40.0-76.0); PLATELET 228 x1000/uL (130-400); RED BLOOD CELL COUNT 3.14 mill/uL (4.2-5.4); RED CELL DISTRIBUTION WIDTH 17.4 % (11.6-14.6)
[2021-02-12 08:00] VITALS: BP 148/57
[2021-02-12] MEDS: ASPIRIN 81MG TABLET PO SCH (08:56)
[2021-02-12] MEDS: DOCUSATE SODIUM 100MG CAPSULE PO SCH ×2 (08:57→17:43)
[2021-02-12] MEDS: CARVEDILOL 6.25 MG TABLET PO SCH ×2 (08:58→21:49)
[2021-02-12] MEDS: AMLODIPINE 5MG TABLET PO SCH (08:58)
[2021-02-12] MEDS: LISINOPRIL 10MG TABLET PO SCH (08:59)
[2021-02-12] MEDS ORDERED: LACTULOSE 20G/30ML UDC PO NR (12:00)
[2021-02-12 20:00] VITALS: BP 122/45
[2021-02-12] MEDS: ENOXAPARIN 40MG/0.4ML SYR SUBCUT SCH (21:48)
[2021-02-12] MEDS: POLYETHYLENE GLYCOL 3350 (17GM) 1 DOSE PACK PO SCH (21:50)
[2021-02-13] MEDS: BLOOD SUGAR DIAGNOSTIC STRIP TEST SCH ×4 (06:30→21:00)
[2021-02-13] MEDS: FUROSEMIDE 40MG/4ML VIAL IVP SCH ×2 (06:44→17:33)
[2021-02-13 06:54] VITALS: BP 126/51
[2021-02-13 07:56] LABS: TOTAL IRON BINDING CAPACITY 284 ug/dL (250-450)
[2021-02-13] MEDS: ASPIRIN 81MG TABLET PO SCH (08:58)
[2021-02-13] MEDS: AMLODIPINE 5MG TABLET PO SCH (08:59)
[2021-02-13] MEDS: LISINOPRIL 10MG TABLET PO SCH (08:59)
[2021-02-13] MEDS: DOCUSATE SODIUM 100MG CAPSULE PO SCH ×2 (08:59→17:33)
[2021-02-13] MEDS: INSULIN LISPRO 100 UNITS/ML SUBCUT SCH ×4 (09:00→22:11)
[2021-02-13] MEDS: CARVEDILOL 6.25 MG TABLET PO SCH ×2 (09:00→22:06)
[2021-02-13] MEDS: FERROUS SULFATE 325MG TABLET PO SCH ×2 (12:32→17:38)
[2021-02-13 20:00] VITALS: BP 135/53
[2021-02-13] MEDS: POLYETHYLENE GLYCOL 3350 (17GM) 1 DOSE PACK PO SCH (21:00)
[2021-02-13] MEDS: ENOXAPARIN 40MG/0.4ML SYR SUBCUT SCH (22:05)
[2021-02-14] MEDS: BLOOD SUGAR DIAGNOSTIC STRIP TEST SCH ×4 (06:18→21:00)
[2021-02-14] MEDS: INSULIN LISPRO 100 UNITS/ML SUBCUT SCH ×4 (06:18→22:37)
[2021-02-14] MEDS: FUROSEMIDE 40MG/4ML VIAL IVP SCH ×2 (06:19→17:27)
[2021-02-14 07:02] LABS: BASOPHILS % 0.5 % (0.0-2.0); EOSINOPHILS % 0.5 % (0.0-5.0); HEMATOCRIT. 29.3 % (36.0-48.0); LYMPHOCYTES % 29.2 % (20.0-50.0); MEAN CORPUSCULAR HEMOGLOBIN 31.3 pg (28.0-32.0); MEAN CORPUSCULAR VOLUME 92.1 fL (81.0-99.0); MEAN PLATELET VOLUME 8.1 fl (7.4-10.4); MONOCYTES % 9.6 % (2.0-8.0); NEUTROPHILS % 60.2 % (40.0-76.0); PLATELET 241 x1000/uL (130-400); RED BLOOD CELL COUNT 3.18 mill/uL (4.2-5.4); RED CELL DISTRIBUTION WIDTH 17.4 % (11.6-14.6)
[2021-02-14 07:21] LABS: CHLORIDE 99 mEq/L (98-107)
[2021-02-14 07:49] VITALS: BP 149/62
[2021-02-14] MEDS: ASPIRIN 81MG TABLET PO SCH (09:34)
[2021-02-14] MEDS: LISINOPRIL 10MG TABLET PO SCH (09:35)
[2021-02-14] MEDS: CARVEDILOL 6.25 MG TABLET PO SCH ×2 (09:36→22:16)
[2021-02-14] MEDS: AMLODIPINE 5MG TABLET PO SCH (09:36)
[2021-02-14] MEDS: DOCUSATE SODIUM 100MG CAPSULE PO SCH ×2 (09:37→17:27)
[2021-02-14] MEDS: FERROUS SULFATE 325MG TABLET PO SCH ×3 (09:41→17:27)
[2021-02-14] MEDS: ASCORBIC ACID 500 MG TABLET PO SCH (09:41)
[2021-02-14 20:00] VITALS: BP 133/156
[2021-02-14] MEDS: POLYETHYLENE GLYCOL 3350 (17GM) 1 DOSE PACK PO SCH (21:00)
[2021-02-14] MEDS: ENOXAPARIN 40MG/0.4ML SYR SUBCUT SCH (22:17)
[2021-02-15] MEDS: BLOOD SUGAR DIAGNOSTIC STRIP TEST SCH ×4 (05:54→21:00)
[2021-02-15] MEDS: FUROSEMIDE 40MG/4ML VIAL IVP SCH ×2 (05:55→16:44)
[2021-02-15] MEDS: INSULIN LISPRO 100 UNITS/ML SUBCUT SCH ×4 (05:55→23:00)
[2021-02-15 08:00] VITALS: BP 156/73
[2021-02-15] MEDS: LISINOPRIL 10MG TABLET PO SCH (08:19)
[2021-02-15] MEDS: DOCUSATE SODIUM 100MG CAPSULE PO SCH ×2 (08:19→16:44)
[2021-02-15] MEDS: FERROUS SULFATE 325MG TABLET PO SCH ×3 (08:19→16:44)
[2021-02-15] MEDS: ASPIRIN 81MG TABLET PO SCH (08:19)
[2021-02-15] MEDS: AMLODIPINE 5MG TABLET PO SCH (08:19)
[2021-02-15] MEDS: CARVEDILOL 6.25 MG TABLET PO SCH ×2 (08:20→22:52)
[2021-02-15] MEDS: ASCORBIC ACID 500 MG TABLET PO SCH (08:20)
[2021-02-15 20:00] VITALS: BP 139/65
[2021-02-15] MEDS: POLYETHYLENE GLYCOL 3350 (17GM) 1 DOSE PACK PO SCH (21:00)
[2021-02-15] MEDS: ENOXAPARIN 40MG/0.4ML SYR SUBCUT SCH (23:29)
[2021-02-16] MEDS: INSULIN LISPRO 100 UNITS/ML SUBCUT SCH ×4 (06:36→23:00)
[2021-02-16] MEDS: BLOOD SUGAR DIAGNOSTIC STRIP TEST SCH ×4 (06:36→23:00)
[2021-02-16] MEDS: FUROSEMIDE 40MG/4ML VIAL IVP SCH ×2 (06:43→17:50)
[2021-02-16 08:30] VITALS: BP 131/50
[2021-02-16] MEDS: DOCUSATE SODIUM 100MG CAPSULE PO SCH ×2 (10:06→17:49)
[2021-02-16] MEDS: ASPIRIN 81MG TABLET PO SCH (10:06)
[2021-02-16] MEDS: FERROUS SULFATE 325MG TABLET PO SCH ×3 (10:07→17:50)
[2021-02-16] MEDS: CARVEDILOL 6.25 MG TABLET PO SCH ×2 (10:07→23:00)
[2021-02-16] MEDS: ASCORBIC ACID 500 MG TABLET PO SCH (10:08)
[2021-02-16] MEDS: AMLODIPINE 5MG TABLET PO SCH (10:08)
[2021-02-16] MEDS: LISINOPRIL 10MG TABLET PO SCH (10:09)
[2021-02-16] MEDS: MAGNESIUM/ALUMINUM HYDROXIDE/SIMETHICONE 30ML UDC PO PRN (10:09)
[2021-02-16] MEDS: ACETAMINOPHEN 325MG TABLET PO PRN (10:10)
[2021-02-16 20:00] VITALS: BP 120/45
[2021-02-16] MEDS: ENOXAPARIN 40MG/0.4ML SYR SUBCUT SCH (22:48)
[2021-02-16] MEDS: POLYETHYLENE GLYCOL 3350 (17GM) 1 DOSE PACK PO SCH (22:57)
[2021-02-17 06:56] LABS: BASOPHILS % 0.9 % (0.0-2.0); EOSINOPHILS % 0.5 % (0.0-5.0); HEMATOCRIT. 27.7 % (36.0-48.0); HEMOGLOBIN. 9.5 g/dL (12.0-16.0); LYMPHOCYTES % 34.5 % (20.0-50.0); MEAN CORPUSCULAR VOLUME 93.3 fL (81.0-99.0); MEAN PLATELET VOLUME 8.3 fl (7.4-10.4); MONOCYTES % 10.3 % (2.0-8.0); NEUTROPHILS % 53.8 % (40.0-76.0); PLATELET 210 x1000/uL (130-400); RED BLOOD CELL COUNT 2.97 mill/uL (4.2-5.4); RED CELL DISTRIBUTION WIDTH 17.3 % (11.6-14.6)
[2021-02-17 07:42] LABS: CHLORIDE 101 mEq/L (98-107)
[2021-02-17 08:00] VITALS: BP 143/65
[2021-02-17] MEDS: INSULIN LISPRO 100 UNITS/ML SUBCUT SCH ×4 (09:00→21:00)
[2021-02-17] MEDS: DOCUSATE SODIUM 100MG CAPSULE PO SCH ×2 (09:21→17:16)
[2021-02-17] MEDS: ASPIRIN 81MG TABLET PO SCH (09:21)
[2021-02-17] MEDS: AMLODIPINE 5MG TABLET PO SCH (09:23)
[2021-02-17] MEDS: CARVEDILOL 6.25 MG TABLET PO SCH ×2 (09:23→21:18)
[2021-02-17] MEDS: FERROUS SULFATE 325MG TABLET PO SCH ×3 (09:23→17:16)
[2021-02-17] MEDS: ASCORBIC ACID 500 MG TABLET PO SCH (09:24)
[2021-02-17] MEDS: LISINOPRIL 10MG TABLET PO SCH (09:24)
[2021-02-17] MEDS: ACETAMINOPHEN 325MG TABLET PO PRN (09:25)
[2021-02-17] MEDS: FUROSEMIDE 40MG/4ML VIAL IVP SCH ×2 (10:32→17:16)
[2021-02-17] MEDS: BLOOD SUGAR DIAGNOSTIC STRIP TEST SCH ×3 (11:15→21:00)
[2021-02-17] MEDS: MAGNESIUM/ALUMINUM HYDROXIDE/SIMETHICONE 30ML UDC PO PRN (12:41)
[2021-02-17 20:00] VITALS: BP 133/60
[2021-02-17] MEDS: POLYETHYLENE GLYCOL 3350 (17GM) 1 DOSE PACK PO SCH (21:16)
[2021-02-17] MEDS: ENOXAPARIN 40MG/0.4ML SYR SUBCUT SCH (21:17)
[2021-02-18] MEDS: BLOOD SUGAR DIAGNOSTIC STRIP TEST SCH ×2 (05:53→11:37)
[2021-02-18] MEDS: INSULIN LISPRO 100 UNITS/ML SUBCUT SCH ×2 (05:53→12:32)
[2021-02-18] MEDS: FUROSEMIDE 40MG/4ML VIAL IVP SCH (06:25)
[2021-02-18 08:24] VITALS: BP 123/69
[2021-02-18] MEDS: AMLODIPINE 5MG TABLET PO SCH (08:44)
[2021-02-18] MEDS: DOCUSATE SODIUM 100MG CAPSULE PO SCH (08:44)
[2021-02-18] MEDS: CARVEDILOL 6.25 MG TABLET PO SCH (08:44)
[2021-02-18] MEDS: ASCORBIC ACID 500 MG TABLET PO SCH (08:44)
[2021-02-18] MEDS: ERGOCALCIFEROL 50000UNITS CAPSULE PO SCH (08:44)
[2021-02-18] MEDS: ASPIRIN 81MG TABLET PO SCH (08:44)
[2021-02-18] MEDS: FERROUS SULFATE 325MG TABLET PO SCH ×2 (08:44→12:26)
[2021-02-18] MEDS: LISINOPRIL 10MG TABLET PO SCH (08:45)
[2021-02-18 10:29] VITALS: BP 123/69
== END 2021-02-18 14:50 | disposition home health service (06) | DRG 91 ==
PROVIDERS: ADMIT Physical Medicine & Rehabilitation Spinal Cord Injury Medicine; ATTEND Internal Medicine
DX: G92 Toxic encephalopathy (principal); I21.4 Non-ST elevation (NSTEMI) myocardial infarction; I50.23 Acute on chronic systolic (congestive) heart failure; E44.1 Mild protein-calorie malnutrition; E87.1 Hypo-osmolality and hyponatremia; I42.9 Cardiomyopathy, unspecified; I47.2 Ventricular tachycardia; L97.909 Non-pressure chronic ulcer of unspecified part of unspecified lower leg with unspecified severity; R18.8 Other ascites; I11.0 Hypertensive heart disease with heart failure; E11.65 Type 2 diabetes mellitus with hyperglycemia; E78.00 Pure hypercholesterolemia, unspecified; F03.90 Unspecified dementia, unspecified severity, without behavioral disturbance, psychotic disturbance, mood disturbance, and anxiety; I25.10 Atherosclerotic heart disease of native coronary artery without angina pectoris; I27.20 Pulmonary hypertension, unspecified; I66.21 Occlusion and stenosis of right posterior cerebral artery; I87.8 Other specified disorders of veins; J44.9 Chronic obstructive pulmonary disease, unspecified; M43.10 Spondylolisthesis, site unspecified; M48.02 Spinal stenosis, cervical region; M48.061 Spinal stenosis, lumbar region without neurogenic claudication; Z82.49 Family history of ischemic heart disease and other diseases of the circulatory system; Z95.5 Presence of coronary angioplasty implant and graft
CPT/HCPCS: 36415; 80048; 80053; 82270; 82306; 82728; 82962; 83540; 83550; 84134; 85025; 92523; 92610; 93970; 97110; 97116; 97162; 97166; 97530; 97535; J1650; J1815; J1940

== ENCOUNTER 2021-04-07 16:22 | Inpatient (IN) | payer BC ==
[~2021-04-07] VITALS: Ht 165.1 cm; Wt 46.7 kg
[2021-04-07 18:41] LABS: BASOPHILS % 0.5 % (0.0-2.0); EOSINOPHILS % 0.1 % (0.0-5.0); HEMOGLOBIN. 13.3 g/dL (12.0-16.0); LYMPHOCYTES % 11.2 % (20.0-50.0); MEAN CORPUSCULAR HEMOGLOBIN 31.3 pg (28.0-32.0); MEAN CORPUSCULAR VOLUME 96.5 fL (81.0-99.0); MEAN PLATELET VOLUME 9.8 fl (7.4-10.4); MONOCYTES % 4.8 % (2.0-8.0); NEUTROPHILS % 83.4 % (40.0-76.0); PLATELET 165 x1000/uL (130-400); RED BLOOD CELL COUNT 4.25 mill/uL (4.2-5.4); RED CELL DISTRIBUTION WIDTH 17.8 % (11.6-14.6)
[2021-04-07 18:45] LABS: CHLORIDE 101 mEq/L (98-107)
[2021-04-07 19:05] LABS: INR 1.2; PROTHROMBIN TIME 12.3 sec (9.6-11.0)
[2021-04-07] MEDS ORDERED: AZITHROMYCIN 500 MG in DEXT 5% WATER 250 ML IV SCH (19:30)
[2021-04-07] MEDS ORDERED: CEFTRIAXONE 1 G PREMIX 50 ML IV NR (19:30)
[2021-04-07 21:05] LABS: CLARITY URINE CLEAR (CLEAR); COLOR URINE YELLOW (YELLOW); KETONES URINE TRACE (NEGATIVE); LEUKOCYTE ESTERASE URINE NEGATIVE (NEGATIVE); NITRITE URINE NEGATIVE (NEGATIVE); OCCULT BLOOD URINE NEGATIVE (NEGATIVE); PH URINE 5.5 (4.5-8.0); PROTEIN URINE 3+ (NEGATIVE); SPECIFIC GRAVITY URINE 1.037 (1.005-1.030)
[2021-04-07] MEDS ORDERED: IOHEXOL-300 100 ML BOTTLE ONE (21:12)
[2021-04-07] MEDS ORDERED: FUROSEMIDE 20MG/2ML VIAL IVP NR (22:30)
[2021-04-07] MEDS ORDERED: ENOXAPARIN 40MG/0.4ML SYR SUBCUT SCH (23:00)
[2021-04-07] MEDS ORDERED: IPRATROPIUM/ALBUTEROL 0.5-3(2.5)MG/3ML NEB HHN PRN (23:00)
[2021-04-07] MEDS ORDERED: DIPHENHYDRAMINE 50MG/ML VIAL IV PRN (23:00)
[2021-04-07] MEDS ORDERED: GUAIFENESIN 200MG/10ML SUGAR FREE UDC PO PRN (23:00)
[2021-04-07] MEDS ORDERED: HYDROCODONE/ACETAMINOPHEN 5/325MG TABLET PO PRN (23:00)
[2021-04-07] MEDS ORDERED: CEFTRIAXONE 1 G PREMIX 50 ML IV SCH (23:00)
[2021-04-07] MEDS ORDERED: DEXTROSE 50% WATER 50ML SYRINGE IV PRN (23:00)
[2021-04-07] MEDS ORDERED: DOCUSATE SODIUM 100MG CAPSULE PO PRN (23:00)
[2021-04-07] MEDS ORDERED: LORAZEPAM 2MG/ML CPJ IV PRN (23:00)
[2021-04-07] MEDS ORDERED: MORPHINE SULFATE 2 MG/ML CPJ (NOT FOR IM USE) IV PRN (23:00)
[2021-04-07] MEDS ORDERED: ONDANSETRON HCL 4MG/2ML INJ IV PRN (23:00)
[2021-04-07] MEDS ORDERED: MAGNESIUM/ALUMINUM HYDROXIDE/SIMETHICONE 30ML UDC PO PRN (23:00)
[2021-04-07] MEDS ORDERED: ASPIRIN 325MG EC TABLET PO NR (23:15)
[2021-04-08] MEDS: CLONIDINE 0.1MG TABLET PO PRN (01:21)
[2021-04-08] MEDS: ENOXAPARIN 60MG/0.6ML SYR SUBCUT SCH ×3 (02:51→22:11)
[2021-04-08] MEDS ORDERED: NALOXONE HCL 0.4MG/ML VIAL IV PRN (05:15)
[2021-04-08 05:53] LABS: CHLORIDE 101 mEq/L (98-107)
[2021-04-08 06:04] LABS: BASOPHILS % 0.1 % (0.0-2.0); HEMATOCRIT. 37.5 % (36.0-48.0); HEMOGLOBIN. 12.4 g/dL (12.0-16.0); LYMPHOCYTES % 11.1 % (20.0-50.0); MEAN CORPUSCULAR HEMOGLOBIN 31.6 pg (28.0-32.0); MEAN CORPUSCULAR VOLUME 95.8 fL (81.0-99.0); MEAN PLATELET VOLUME 10.1 fl (7.4-10.4); MONOCYTES % 3.1 % (2.0-8.0); NEUTROPHILS % 85.7 % (40.0-76.0); PLATELET 150 x1000/uL (130-400); RED BLOOD CELL COUNT 3.91 mill/uL (4.2-5.4); RED CELL DISTRIBUTION WIDTH 17.4 % (11.6-14.6)
[2021-04-08] MEDS: SODIUM CHLORIDE 0.9% INJ 3ML FLUSH IVF SCH ×3 (06:38→22:14)
[2021-04-08] MEDS: BLOOD SUGAR DIAGNOSTIC STRIP TEST SCH ×4 (07:40→20:40)
[2021-04-08 12:00] VITALS: BP 176/69
[2021-04-08] MEDS ORDERED: POTASSIUM CHLORIDE 20MEQ TABLET SR PO NR (12:30)
[2021-04-08] MEDS: INSULIN LISPRO 100 UNITS/ML SUBCUT SCH ×3 (12:57→22:12)
[2021-04-08] MEDS: HYDRALAZINE 20MG/ML VIAL IV PRN (12:58)
[2021-04-08] MEDS ORDERED: ALBUTEROL 6.7GM HFA INHALER ORI PRN (13:15)
[2021-04-08 16:00] VITALS: BP 192/79
[2021-04-08] MEDS: LISINOPRIL 5MG TABLET PO SCH (17:01)
[2021-04-08 20:00] VITALS: BP 146/76
[2021-04-08] MEDS: CARVEDILOL 3.125 MG TABLET PO SCH (20:47)
[2021-04-08] MEDS: ATORVASTATIN CALCIUM 20MG TABLET PO SCH (20:47)
[2021-04-08] MEDS: AZITHROMYCIN 500 MG in DEXT 5% WATER 250 ML IV SCH (22:14)
[2021-04-08] MEDS: ACETAMINOPHEN 325MG TABLET PO PRN (22:14)
[2021-04-09] VITALS: BP 94/74
[2021-04-09] MEDS: CEFTRIAXONE 1,000 MG in DEXTROSE 5% WATER 50 ML IV SCH ×2 (01:30→22:39)
[2021-04-09 04:00] VITALS: BP 140/57
[2021-04-09] MEDS: BLOOD SUGAR DIAGNOSTIC STRIP TEST SCH ×4 (07:40→20:54)
[2021-04-09 08:00] VITALS: BP 168/93
[2021-04-09] MEDS: INSULIN LISPRO 100 UNITS/ML SUBCUT SCH ×4 (08:10→20:52)
[2021-04-09] MEDS ORDERED: FUROSEMIDE 20MG/2ML VIAL IVP SCH (09:00)
[2021-04-09] MEDS: ASPIRIN 81MG TABLET PO SCH (09:17)
[2021-04-09] MEDS: LISINOPRIL 5MG TABLET PO SCH (09:17)
[2021-04-09] MEDS: CARVEDILOL 3.125 MG TABLET PO SCH (09:17)
[2021-04-09 09:50] LABS: BASOPHILS % 0.2 % (0.0-2.0); HEMATOCRIT. 45.5 % (36.0-48.0); LYMPHOCYTES % 14.7 % (20.0-50.0); MEAN CORPUSCULAR HEMOGLOBIN 31.6 pg (28.0-32.0); MEAN CORPUSCULAR VOLUME 95.7 fL (81.0-99.0); MEAN PLATELET VOLUME 10.3 fl (7.4-10.4); MONOCYTES % 2.8 % (2.0-8.0); NEUTROPHILS % 82.3 % (40.0-76.0); PLATELET 173 x1000/uL (130-400); RED BLOOD CELL COUNT 4.75 mill/uL (4.2-5.4); RED CELL DISTRIBUTION WIDTH 17.8 % (11.6-14.6)
[2021-04-09 10:13] LABS: CHLORIDE 100 mEq/L (98-107)
[2021-04-09 12:00] VITALS: BP 159/69
[2021-04-09] MEDS: ENOXAPARIN 60MG/0.6ML SYR SUBCUT SCH ×2 (12:35→22:39)
[2021-04-09] MEDS: SODIUM CHLORIDE 0.9% INJ 3ML FLUSH IVF SCH ×2 (13:08→22:40)
[2021-04-09 16:00] VITALS: BP 152/80
[2021-04-09] MEDS ORDERED: POTASSIUM CHLORIDE 20MEQ TABLET SR PO NR (16:00)
[2021-04-09] MEDS: ACETAMINOPHEN 325MG TABLET PO PRN (17:03)
[2021-04-09 20:15] VITALS: BP 172/72
[2021-04-09] MEDS: ATORVASTATIN CALCIUM 20MG TABLET PO SCH (20:53)
[2021-04-09] MEDS: CARVEDILOL 6.25 MG TABLET PO SCH (20:53)
[2021-04-09] MEDS: FUROSEMIDE 20MG/2ML VIAL IVP SCH (20:55)
[2021-04-09] MEDS: AZITHROMYCIN 500 MG in DEXT 5% WATER 250 ML IV SCH (22:39)
[2021-04-10 00:35] VITALS: BP 150/66
[2021-04-10 04:00] VITALS: BP 155/70
[2021-04-10] MEDS: SODIUM CHLORIDE 0.9% INJ 3ML FLUSH IVF SCH ×3 (05:49→21:15)
[2021-04-10] MEDS: BLOOD SUGAR DIAGNOSTIC STRIP TEST SCH ×4 (07:40→21:16)
[2021-04-10 08:00] VITALS: BP 134/80
[2021-04-10 08:03] LABS: BASOPHILS % 0.2 % (0.0-2.0); HEMATOCRIT. 40.7 % (36.0-48.0); HEMOGLOBIN. 12.9 g/dL (12.0-16.0); LYMPHOCYTES % 17.5 % (20.0-50.0); MEAN CORPUSCULAR HEMOGLOBIN 31.1 pg (28.0-32.0); MEAN CORPUSCULAR VOLUME 97.8 fL (81.0-99.0); MEAN PLATELET VOLUME 10.7 fl (7.4-10.4); MONOCYTES % 4.1 % (2.0-8.0); NEUTROPHILS % 78.2 % (40.0-76.0); PLATELET 129 x1000/uL (130-400); RED BLOOD CELL COUNT 4.16 mill/uL (4.2-5.4); RED CELL DISTRIBUTION WIDTH 18.4 % (11.6-14.6)
[2021-04-10 08:12] LABS: CHLORIDE 100 mEq/L (98-107)
[2021-04-10] MEDS: LISINOPRIL 5MG TABLET PO SCH (08:31)
[2021-04-10] MEDS: FUROSEMIDE 20MG/2ML VIAL IVP SCH ×2 (08:31→21:14)
[2021-04-10] MEDS: CARVEDILOL 6.25 MG TABLET PO SCH ×2 (08:32→21:14)
[2021-04-10] MEDS: ASPIRIN 81MG TABLET PO SCH (08:32)
[2021-04-10] MEDS: INSULIN LISPRO 100 UNITS/ML SUBCUT SCH ×4 (08:32→21:15)
[2021-04-10 12:00] VITALS: BP 150/62
[2021-04-10] MEDS: ENOXAPARIN 60MG/0.6ML SYR SUBCUT SCH ×2 (12:52→21:14)
[2021-04-10 16:00] VITALS: BP 173/69
[2021-04-10] MEDS: HYDRALAZINE 20MG/ML VIAL IV PRN (17:19)
[2021-04-10 20:00] VITALS: BP 182/82
[2021-04-10] MEDS: ATORVASTATIN CALCIUM 20MG TABLET PO SCH (21:13)
[2021-04-10] MEDS: CEFTRIAXONE 1,000 MG in DEXTROSE 5% WATER 50 ML IV SCH (23:24)
[2021-04-10] MEDS: AZITHROMYCIN 500 MG in DEXT 5% WATER 250 ML IV SCH (23:24)
[2021-04-11] VITALS (7 sets, daily range): BP systolic 151–187; BP diastolic 61–76
[2021-04-11] MEDS: CLONIDINE 0.1MG TABLET PO PRN (05:06)
[2021-04-11] MEDS: SODIUM CHLORIDE 0.9% INJ 3ML FLUSH IVF SCH ×3 (05:06→21:04)
[2021-04-11] MEDS: BLOOD SUGAR DIAGNOSTIC STRIP TEST SCH ×4 (07:40→21:04)
[2021-04-11] MEDS: INSULIN LISPRO 100 UNITS/ML SUBCUT SCH ×4 (08:10→21:06)
[2021-04-11] MEDS: CARVEDILOL 6.25 MG TABLET PO SCH ×2 (09:30→21:03)
[2021-04-11] MEDS: ENOXAPARIN 60MG/0.6ML SYR SUBCUT SCH ×2 (09:30→21:04)
[2021-04-11] MEDS: ASPIRIN 81MG TABLET PO SCH (09:30)
[2021-04-11] MEDS: FUROSEMIDE 20MG/2ML VIAL IVP SCH ×2 (09:31→21:03)
[2021-04-11] MEDS: LISINOPRIL 5MG TABLET PO SCH (09:31)
[2021-04-11] MEDS: ATORVASTATIN CALCIUM 20MG TABLET PO SCH (21:07)
[2021-04-11] MEDS: CEFTRIAXONE 1,000 MG in DEXTROSE 5% WATER 50 ML IV SCH (23:20)
[2021-04-12] VITALS: BP 128/54
[2021-04-12] MEDS: AZITHROMYCIN 500 MG in DEXT 5% WATER 250 ML IV SCH (00:34)
[2021-04-12 04:00] VITALS: BP 148/75
[2021-04-12] MEDS: BLOOD SUGAR DIAGNOSTIC STRIP TEST SCH ×4 (07:40→21:11)
[2021-04-12 07:44] LABS: CHLORIDE 95 mEq/L (98-107)
[2021-04-12 08:00] VITALS: BP 169/72
[2021-04-12] MEDS: LISINOPRIL 5MG TABLET PO SCH (08:05)
[2021-04-12] MEDS: FUROSEMIDE 20MG/2ML VIAL IVP SCH ×2 (08:06→22:08)
[2021-04-12] MEDS: INSULIN LISPRO 100 UNITS/ML SUBCUT SCH ×4 (08:06→22:09)
[2021-04-12] MEDS: CARVEDILOL 6.25 MG TABLET PO SCH ×3 (08:06→22:06)
[2021-04-12] MEDS: ENOXAPARIN 60MG/0.6ML SYR SUBCUT SCH ×2 (08:06→22:08)
[2021-04-12] MEDS: ASPIRIN 81MG TABLET PO SCH (08:06)
[2021-04-12 12:00] VITALS: BP 161/61
[2021-04-12 13:10] LABS: BASOPHILS % 0.4 % (0.0-2.0); HEMATOCRIT. 41.4 % (36.0-48.0); HEMOGLOBIN. 13.6 g/dL (12.0-16.0); LYMPHOCYTES % 25.4 % (20.0-50.0); MEAN CORPUSCULAR HEMOGLOBIN 31.2 pg (28.0-32.0); MEAN CORPUSCULAR VOLUME 95.2 fL (81.0-99.0); MEAN PLATELET VOLUME 10.2 fl (7.4-10.4); MONOCYTES % 5.3 % (2.0-8.0); NEUTROPHILS % 68.9 % (40.0-76.0); PLATELET 177 x1000/uL (130-400); RED BLOOD CELL COUNT 4.34 mill/uL (4.2-5.4); RED CELL DISTRIBUTION WIDTH 17.7 % (11.6-14.6)
[2021-04-12 16:00] VITALS: BP 170/75
[2021-04-12] MEDS: HYDRALAZINE 20MG/ML VIAL IV PRN (16:31)
[2021-04-12 20:00] VITALS: BP 108/72
[2021-04-12] MEDS: ATORVASTATIN CALCIUM 20MG TABLET PO SCH (22:08)
[2021-04-13] VITALS: BP 149/80
[2021-04-13] MEDS: CEFTRIAXONE 1,000 MG in DEXTROSE 5% WATER 50 ML IV SCH (01:12)
[2021-04-13 04:00] VITALS: BP 145/60
[2021-04-13] MEDS: BLOOD SUGAR DIAGNOSTIC STRIP TEST SCH ×4 (07:40→21:00)
[2021-04-13 08:00] VITALS: BP 139/79
[2021-04-13] MEDS: INSULIN LISPRO 100 UNITS/ML SUBCUT SCH ×4 (08:10→21:00)
[2021-04-13] MEDS: ENOXAPARIN 60MG/0.6ML SYR SUBCUT SCH ×2 (08:54→22:38)
[2021-04-13] MEDS: FUROSEMIDE 20MG/2ML VIAL IVP SCH ×2 (08:54→22:37)
[2021-04-13] MEDS: ASPIRIN 81MG TABLET PO SCH (08:55)
[2021-04-13] MEDS: LISINOPRIL 40MG TABLET PO SCH (08:55)
[2021-04-13] MEDS: CARVEDILOL 6.25 MG TABLET PO SCH ×2 (08:55→22:38)
[2021-04-13 10:45] LABS: BASOPHILS % 0.3 % (0.0-2.0); HEMOGLOBIN. 13.6 g/dL (12.0-16.0); LYMPHOCYTES % 18.3 % (20.0-50.0); MEAN CORPUSCULAR HEMOGLOBIN 31.3 pg (28.0-32.0); MEAN CORPUSCULAR VOLUME 94.5 fL (81.0-99.0); MEAN PLATELET VOLUME 9.9 fl (7.4-10.4); MONOCYTES % 7.8 % (2.0-8.0); NEUTROPHILS % 73.6 % (40.0-76.0); PLATELET 180 x1000/uL (130-400); RED BLOOD CELL COUNT 4.34 mill/uL (4.2-5.4); RED CELL DISTRIBUTION WIDTH 17.1 % (11.6-14.6)
[2021-04-13 10:50] LABS: CHLORIDE 94 mEq/L (98-107)
[2021-04-13 12:00] VITALS: BP 122/50
[2021-04-13 12:30] LABS: BG BASE EXCESS 13.5 mmol/L (-2.0-2.0); BG CARBOXYHEMOGLOBIN 1.2 % (0.5-1.5); BG FRACTION INSPIRED OXYGEN 21; BG HCO3 ACT 38.3 mmol/L (22.0-26.0); BG METHEMOGLOBIN 0.3 % (0.0-1.5); BG OXYGEN SATURATION 76.6 % (92.0-98.5); BG OXYHEMOGLOBIN 75.5 % (94.0-97.0); BG PCO2 48.1 mmHg (35.0-45.0); BG PH 7.519 (7.350-7.450); BG PO2 39.4 mmHg (75.0-100.0); BG SAMPLE SITE RIGHT BRACHIAL; BG TOTAL HEMOGLOBIN 14.3 g/dL (12.0-18.0); BG VENT MODE ROOM AIR
[2021-04-13] MEDS ORDERED: MAGNESIUM 2 G PREMIX 50 ML IV NR (12:45)
[2021-04-13] MEDS ORDERED: POTASSIUM CHLORIDE 20MEQ TABLET SR PO NR (13:30)
[2021-04-13] MEDS ORDERED: POTASSIUM CHLORIDE INJ 40 MEQ in DEXT 5% WATER 250 ML IV NR (14:00)
[2021-04-13] MEDS: SODIUM CHLORIDE 0.9% INJ 3ML FLUSH IVF SCH ×2 (14:45→22:00)
[2021-04-13 16:00] VITALS: BP 131/62
[2021-04-13 20:00] VITALS: BP 135/75
[2021-04-13] MEDS ORDERED: KCL 20MEQ/100ML PREMIX 100 ML IV NR (21:30)
[2021-04-13] MEDS: ATORVASTATIN CALCIUM 20MG TABLET PO SCH (22:38)
[2021-04-14] VITALS (7 sets, daily range): BP systolic 136–172; BP diastolic 61–81
[2021-04-14] MEDS: SODIUM CHLORIDE 0.9% INJ 3ML FLUSH IVF SCH ×3 (06:00→22:00)
[2021-04-14] MEDS: BLOOD SUGAR DIAGNOSTIC STRIP TEST SCH ×4 (07:12→21:45)
[2021-04-14 07:43] LABS: BASOPHILS % 0.3 % (0.0-2.0); CHLORIDE 96 mEq/L (98-107); HEMATOCRIT. 42.7 % (36.0-48.0); HEMOGLOBIN. 14.3 g/dL (12.0-16.0); LYMPHOCYTES % 26.1 % (20.0-50.0); MEAN CORPUSCULAR HEMOGLOBIN 31.3 pg (28.0-32.0); MEAN CORPUSCULAR VOLUME 93.7 fL (81.0-99.0); MEAN PLATELET VOLUME 9.7 fl (7.4-10.4); MONOCYTES % 7.8 % (2.0-8.0); NEUTROPHILS % 65.8 % (40.0-76.0); PLATELET 205 x1000/uL (130-400); RED BLOOD CELL COUNT 4.55 mill/uL (4.2-5.4); RED CELL DISTRIBUTION WIDTH 17.4 % (11.6-14.6)
[2021-04-14] MEDS: ENOXAPARIN 60MG/0.6ML SYR SUBCUT SCH ×2 (08:13→21:34)
[2021-04-14] MEDS: INSULIN LISPRO 100 UNITS/ML SUBCUT SCH ×4 (08:14→21:35)
[2021-04-14] MEDS: CARVEDILOL 6.25 MG TABLET PO SCH (08:14)
[2021-04-14] MEDS: LISINOPRIL 40MG TABLET PO SCH (08:14)
[2021-04-14] MEDS: ASPIRIN 81MG TABLET PO SCH (08:14)
[2021-04-14] MEDS: FUROSEMIDE 20MG/2ML VIAL IVP SCH ×2 (08:15→21:33)
[2021-04-14] MEDS ORDERED: POTASSIUM CHLORIDE 20MEQ TABLET SR PO NR (08:30)
[2021-04-14] MEDS ORDERED: POTASSIUM CHLORIDE INJ 40 MEQ in DEXT 5% WATER 250 ML IV NR (10:00)
[2021-04-14] MEDS: CARVEDILOL 12.5MG TABLET PO SCH (21:33)
[2021-04-14] MEDS: ATORVASTATIN CALCIUM 20MG TABLET PO SCH (21:34)
[2021-04-15] VITALS: BP 117/82
[2021-04-15 04:00] VITALS: BP 117/56
[2021-04-15] MEDS: SODIUM CHLORIDE 0.9% INJ 3ML FLUSH IVF SCH ×3 (05:38→22:32)
[2021-04-15 07:09] LABS: BASOPHILS % 0.4 % (0.0-2.0); EOSINOPHILS % 0.1 % (0.0-5.0); HEMATOCRIT. 39.8 % (36.0-48.0); HEMOGLOBIN. 13.1 g/dL (12.0-16.0); LYMPHOCYTES % 32.3 % (20.0-50.0); MEAN PLATELET VOLUME 9.8 fl (7.4-10.4); MONOCYTES % 10.2 % (2.0-8.0); PLATELET 208 x1000/uL (130-400); RED BLOOD CELL COUNT 4.24 mill/uL (4.2-5.4)
[2021-04-15 07:15] LABS: CHLORIDE 98 mEq/L (98-107)
[2021-04-15 08:00] VITALS: BP 148/78
[2021-04-15] MEDS: INSULIN LISPRO 100 UNITS/ML SUBCUT SCH ×4 (08:06→22:31)
[2021-04-15] MEDS: BLOOD SUGAR DIAGNOSTIC STRIP TEST SCH ×4 (08:06→21:00)
[2021-04-15] MEDS ORDERED: POTASSIUM CHLORIDE 20MEQ TABLET SR PO NR (09:30)
[2021-04-15] MEDS: FUROSEMIDE 20MG/2ML VIAL IVP SCH ×2 (09:30→22:31)
[2021-04-15] MEDS: ASPIRIN 81MG TABLET PO SCH (09:30)
[2021-04-15] MEDS: CARVEDILOL 12.5MG TABLET PO SCH ×2 (09:30→22:30)
[2021-04-15] MEDS: LISINOPRIL 40MG TABLET PO SCH (09:31)
[2021-04-15] MEDS: ENOXAPARIN 60MG/0.6ML SYR SUBCUT SCH ×2 (09:32→22:30)
[2021-04-15 12:00] VITALS: BP 146/61
[2021-04-15 20:00] VITALS: BP 159/72
[2021-04-15] MEDS: ATORVASTATIN CALCIUM 20MG TABLET PO SCH (22:30)
[2021-04-16] VITALS: BP 137/61
[2021-04-16 04:00] VITALS: BP 176/82
[2021-04-16] MEDS: SODIUM CHLORIDE 0.9% INJ 3ML FLUSH IVF SCH ×3 (06:00→20:57)
[2021-04-16] MEDS: INSULIN LISPRO 100 UNITS/ML SUBCUT SCH ×4 (07:27→21:10)
[2021-04-16] MEDS: BLOOD SUGAR DIAGNOSTIC STRIP TEST SCH ×4 (07:27→20:57)
[2021-04-16 07:56] LABS: CHLORIDE 99 mEq/L (98-107)
[2021-04-16 07:57] LABS: BASOPHILS % 0.7 % (0.0-2.0); HEMATOCRIT. 40.2 % (36.0-48.0); HEMOGLOBIN. 13.3 g/dL (12.0-16.0); LYMPHOCYTES % 34.7 % (20.0-50.0); MEAN CORPUSCULAR HEMOGLOBIN 31.4 pg (28.0-32.0); MEAN CORPUSCULAR VOLUME 94.6 fL (81.0-99.0); MEAN PLATELET VOLUME 9.6 fl (7.4-10.4); MONOCYTES % 12.6 % (2.0-8.0); PLATELET 232 x1000/uL (130-400); RED BLOOD CELL COUNT 4.25 mill/uL (4.2-5.4); RED CELL DISTRIBUTION WIDTH 17.3 % (11.6-14.6)
[2021-04-16 08:00] VITALS: BP 143/58
[2021-04-16] MEDS: LISINOPRIL 40MG TABLET PO SCH (09:52)
[2021-04-16] MEDS: CARVEDILOL 12.5MG TABLET PO SCH ×2 (09:52→20:56)
[2021-04-16] MEDS: FUROSEMIDE 20MG/2ML VIAL IVP SCH ×2 (09:52→20:56)
[2021-04-16] MEDS: ASPIRIN 81MG TABLET PO SCH (09:52)
[2021-04-16] MEDS: ENOXAPARIN 60MG/0.6ML SYR SUBCUT SCH ×2 (09:53→20:57)
[2021-04-16 12:00] VITALS: BP 156/77
[2021-04-16] MEDS ORDERED: POTASSIUM CHLORIDE 20MEQ/PACKET PO SCH (12:15)
[2021-04-16] MEDS ORDERED: POTASSIUM CHLORIDE 20MEQ TABLET SR PO SCH (12:15)
[2021-04-16 16:00] VITALS: BP 156/77
[2021-04-16] MEDS: THIAMINE HCL 100MG TABLET PO SCH (16:43)
[2021-04-16] MEDS: FOLIC ACID 1MG TABLET PO SCH (16:43)
[2021-04-16 20:00] VITALS: BP 179/81
[2021-04-16] MEDS: CLONIDINE 0.1MG TABLET PO PRN (20:56)
[2021-04-16] MEDS: ATORVASTATIN CALCIUM 20MG TABLET PO SCH (20:56)
[2021-04-17] VITALS: BP 156/70
[2021-04-17 04:00] VITALS: BP 123/67
[2021-04-17] MEDS: BLOOD SUGAR DIAGNOSTIC STRIP TEST SCH ×4 (05:53→21:19)
[2021-04-17] MEDS: SODIUM CHLORIDE 0.9% INJ 3ML FLUSH IVF SCH ×4 (05:53→22:00)
[2021-04-17 08:00] VITALS: BP_SYST 157; BP_SYST 186; BP_DIAS 77; BP_DIAS 87
[2021-04-17] MEDS: ASPIRIN 81MG TABLET PO SCH (08:01)
[2021-04-17] MEDS: FUROSEMIDE 20MG/2ML VIAL IVP SCH (08:01)
[2021-04-17] MEDS: LISINOPRIL 40MG TABLET PO SCH (08:02)
[2021-04-17] MEDS: ENOXAPARIN 60MG/0.6ML SYR SUBCUT SCH ×3 (08:02→21:20)
[2021-04-17] MEDS: CARVEDILOL 12.5MG TABLET PO SCH ×2 (08:02→21:18)
[2021-04-17] MEDS: FOLIC ACID 1MG TABLET PO SCH (08:04)
[2021-04-17] MEDS: THIAMINE HCL 100MG TABLET PO SCH (08:04)
[2021-04-17] MEDS: INSULIN LISPRO 100 UNITS/ML SUBCUT SCH ×4 (08:05→21:00)
[2021-04-17] MEDS: CLONIDINE 0.1MG TABLET PO PRN ×2 (09:13→21:19)
[2021-04-17 12:00] VITALS: BP 148/60
[2021-04-17 16:00] VITALS: BP 158/71
[2021-04-17] MEDS: FUROSEMIDE 40MG TABLET PO SCH (17:37)
[2021-04-17 20:00] VITALS: BP 160/76
[2021-04-17] MEDS: ATORVASTATIN CALCIUM 20MG TABLET PO SCH (21:19)
[2021-04-18] VITALS: BP 157/61
[2021-04-18 04:00] VITALS: BP 153/61
[2021-04-18] MEDS: FUROSEMIDE 40MG TABLET PO SCH ×2 (05:29→16:58)
[2021-04-18] MEDS: SODIUM CHLORIDE 0.9% INJ 3ML FLUSH IVF SCH ×3 (05:33→21:42)
[2021-04-18] MEDS: BLOOD SUGAR DIAGNOSTIC STRIP TEST SCH ×4 (06:09→21:28)
[2021-04-18 08:00] VITALS: BP 170/74
[2021-04-18] MEDS: THIAMINE HCL 100MG TABLET PO SCH (08:31)
[2021-04-18] MEDS: CARVEDILOL 12.5MG TABLET PO SCH ×2 (08:31→21:29)
[2021-04-18] MEDS: ASPIRIN 81MG TABLET PO SCH (08:31)
[2021-04-18] MEDS: FOLIC ACID 1MG TABLET PO SCH (08:31)
[2021-04-18] MEDS: LISINOPRIL 40MG TABLET PO SCH (08:32)
[2021-04-18] MEDS: ENOXAPARIN 60MG/0.6ML SYR SUBCUT SCH ×3 (08:32→21:28)
[2021-04-18] MEDS: INSULIN LISPRO 100 UNITS/ML SUBCUT SCH ×4 (08:33→21:41)
[2021-04-18 12:00] VITALS: BP 142/66
[2021-04-18 17:49] LABS: CHLORIDE 100 mEq/L (98-107)
[2021-04-18 20:00] VITALS: BP 136/51
[2021-04-18] MEDS: GUAIFENESIN 600MG ER TABLET PO SCH (21:29)
[2021-04-18] MEDS: ATORVASTATIN CALCIUM 20MG TABLET PO SCH (21:30)
[2021-04-18] MEDS: HALOPERIDOL LACTATE 5MG/ML VIAL IM PRN (21:51)
[2021-04-19] VITALS: BP 137/48
[2021-04-19 04:00] VITALS: BP 140/47
[2021-04-19] MEDS: BLOOD SUGAR DIAGNOSTIC STRIP TEST SCH ×4 (05:58→21:25)
[2021-04-19] MEDS: FUROSEMIDE 40MG TABLET PO SCH ×2 (05:58→17:20)
[2021-04-19] MEDS: SODIUM CHLORIDE 0.9% INJ 3ML FLUSH IVF SCH ×4 (05:58→22:00)
[2021-04-19] MEDS: INSULIN LISPRO 100 UNITS/ML SUBCUT SCH ×4 (06:00→21:51)
[2021-04-19 08:00] VITALS: BP 180/89
[2021-04-19] MEDS ORDERED: POTASSIUM CHLORIDE 20MEQ TABLET SR PO NR (09:00)
[2021-04-19] MEDS: ASPIRIN 81MG TABLET PO SCH (09:31)
[2021-04-19] MEDS: FOLIC ACID 1MG TABLET PO SCH (09:31)
[2021-04-19] MEDS: GUAIFENESIN 600MG ER TABLET PO SCH ×2 (09:31→21:26)
[2021-04-19] MEDS: THIAMINE HCL 100MG TABLET PO SCH (09:31)
[2021-04-19] MEDS: LISINOPRIL 40MG TABLET PO SCH (09:31)
[2021-04-19] MEDS: CARVEDILOL 12.5MG TABLET PO SCH ×2 (09:32→21:26)
[2021-04-19] MEDS: ENOXAPARIN 60MG/0.6ML SYR SUBCUT SCH ×2 (09:33→21:26)
[2021-04-19] MEDS: HALOPERIDOL LACTATE 5MG/ML VIAL IM PRN (09:34)
[2021-04-19 12:00] VITALS: BP 157/65
[2021-04-19 16:30] VITALS: BP 110/65
[2021-04-19 20:00] VITALS: BP 142/63
[2021-04-19] MEDS: ATORVASTATIN CALCIUM 20MG TABLET PO SCH (21:26)
[2021-04-20] VITALS (7 sets, daily range): BP systolic 104–194; BP diastolic 50–89
[2021-04-20] MEDS: ACETAMINOPHEN 325MG TABLET PO PRN (06:00)
[2021-04-20] MEDS: SODIUM CHLORIDE 0.9% INJ 3ML FLUSH IVF SCH ×3 (06:00→22:06)
[2021-04-20] MEDS: FUROSEMIDE 40MG TABLET PO SCH ×2 (06:01→17:55)
[2021-04-20] MEDS: BLOOD SUGAR DIAGNOSTIC STRIP TEST SCH ×4 (06:02→21:12)
[2021-04-20] MEDS: INSULIN LISPRO 100 UNITS/ML SUBCUT SCH ×4 (06:11→21:00)
[2021-04-20] MEDS: CARVEDILOL 12.5MG TABLET PO SCH ×2 (08:38→22:08)
[2021-04-20] MEDS: LISINOPRIL 40MG TABLET PO SCH (08:39)
[2021-04-20] MEDS: GUAIFENESIN 600MG ER TABLET PO SCH ×2 (08:39→22:06)
[2021-04-20] MEDS: FOLIC ACID 1MG TABLET PO SCH (08:39)
[2021-04-20] MEDS: ASPIRIN 81MG TABLET PO SCH (08:39)
[2021-04-20] MEDS: THIAMINE HCL 100MG TABLET PO SCH (08:40)
[2021-04-20] MEDS: CLONIDINE 0.1MG TABLET PO PRN (08:40)
[2021-04-20] MEDS: ENOXAPARIN 60MG/0.6ML SYR SUBCUT SCH ×2 (08:40→22:05)
[2021-04-20] MEDS: HALOPERIDOL LACTATE 5MG/ML VIAL IM PRN (08:41)
[2021-04-20] MEDS: HYDRALAZINE HCL 25MG TABLET PO SCH ×2 (11:47→22:08)
[2021-04-20] MEDS: ATORVASTATIN CALCIUM 20MG TABLET PO SCH (22:06)
[2021-04-21] VITALS: BP 118/57
[2021-04-21 04:00] VITALS: BP_SYST 135; BP_SYST 145; BP_DIAS 51; BP_DIAS 80
[2021-04-21] MEDS: SODIUM CHLORIDE 0.9% INJ 3ML FLUSH IVF SCH ×2 (05:12→15:51)
[2021-04-21 05:39] LABS: CHLORIDE 100 mEq/L (98-107)
[2021-04-21] MEDS: FUROSEMIDE 40MG TABLET PO SCH ×2 (05:54→17:51)
[2021-04-21] MEDS: BLOOD SUGAR DIAGNOSTIC STRIP TEST SCH ×3 (06:00→17:34)
[2021-04-21 06:18] LABS: BASOPHILS % 0.3 % (0.0-2.0); EOSINOPHILS % 0.5 % (0.0-5.0); HEMATOCRIT. 37.5 % (36.0-48.0); HEMOGLOBIN. 12.3 g/dL (12.0-16.0); LYMPHOCYTES % 34.8 % (20.0-50.0); MEAN CORPUSCULAR HEMOGLOBIN 30.8 pg (28.0-32.0); MEAN CORPUSCULAR VOLUME 93.8 fL (81.0-99.0); MEAN PLATELET VOLUME 9.3 fl (7.4-10.4); MONOCYTES % 8.1 % (2.0-8.0); NEUTROPHILS % 56.3 % (40.0-76.0); PLATELET 277 x1000/uL (130-400); RED CELL DISTRIBUTION WIDTH 16.7 % (11.6-14.6)
[2021-04-21] MEDS: INSULIN LISPRO 100 UNITS/ML SUBCUT SCH ×3 (06:32→17:10)
[2021-04-21 08:00] VITALS: BP 142/73
[2021-04-21] MEDS: FOLIC ACID 1MG TABLET PO SCH (08:22)
[2021-04-21] MEDS: THIAMINE HCL 100MG TABLET PO SCH (08:23)
[2021-04-21] MEDS: ENOXAPARIN 60MG/0.6ML SYR SUBCUT SCH (08:23)
[2021-04-21] MEDS: GUAIFENESIN 600MG ER TABLET PO SCH (08:23)
[2021-04-21] MEDS: ASPIRIN 81MG TABLET PO SCH (08:23)
[2021-04-21] MEDS: CARVEDILOL 12.5MG TABLET PO SCH (08:38)
[2021-04-21] MEDS: HYDRALAZINE 20MG/ML VIAL IV PRN (08:39)
[2021-04-21] MEDS: LISINOPRIL 40MG TABLET PO SCH (08:40)
[2021-04-21] MEDS: HYDRALAZINE HCL 25MG TABLET PO SCH (08:54)
[2021-04-21 12:00] VITALS: BP 139/64
[2021-04-21 16:00] VITALS: BP 144/68
[2021-04-21 19:32] VITALS: BP 144/68
[2021-04-26] MEDS ORDERED: ALBU2.5V13 HHN (17:53)
[2021-04-26] MEDS ORDERED: FAMO20TA8 PO (17:53)
[2021-04-26] MEDS ORDERED: COR3 PO (17:53)
[2021-04-26] MEDS ORDERED: AMLO2.5T45 PO (17:53)
[2021-04-26] MEDS ORDERED: LOSA25TA3 PO (17:53)
[2021-04-26] MEDS ORDERED: ASPI-1160 PO (17:53)
== END 2021-04-21 20:45 | disposition home health service (06) | DRG 871 ==
LOC: ER 16:22 → MICUSO 19:59 → 7WST 04-08 05:06 → MICUSO 04-08 08:40 → 7WST 04-08 08:44 → 7EST 04-18 11:13 → UNDODISIN 04-19 21:55
PROVIDERS: ADMIT Internal Medicine; ATTEND Internal Medicine
DX: A41.89 Other specified sepsis (principal); U07.1 COVID-19; J96.01 Acute respiratory failure with hypoxia; J12.82 Pneumonia due to coronavirus disease 2019; I21.4 Non-ST elevation (NSTEMI) myocardial infarction; I40.0 Infective myocarditis; I50.23 Acute on chronic systolic (congestive) heart failure; J44.0 Chronic obstructive pulmonary disease with (acute) lower respiratory infection; E44.1 Mild protein-calorie malnutrition; L97.909 Non-pressure chronic ulcer of unspecified part of unspecified lower leg with unspecified severity; J98.11 Atelectasis; Z68.1 Body mass index [BMI] 19.9 or less, adult; F05 Delirium due to known physiological condition; I11.0 Hypertensive heart disease with heart failure; E11.51 Type 2 diabetes mellitus with diabetic peripheral angiopathy without gangrene; E11.65 Type 2 diabetes mellitus with hyperglycemia; E78.5 Hyperlipidemia, unspecified; I25.5 Ischemic cardiomyopathy; I27.20 Pulmonary hypertension, unspecified; E83.42 Hypomagnesemia; I66.9 Occlusion and stenosis of unspecified cerebral artery; E87.6 Hypokalemia; F03.90 Unspecified dementia, unspecified severity, without behavioral disturbance, psychotic disturbance, mood disturbance, and anxiety; I07.1 Rheumatic tricuspid insufficiency; I25.10 Atherosclerotic heart disease of native coronary artery without angina pectoris; I87.8 Other specified disorders of veins; L85.3 Xerosis cutis; Z95.5 Presence of coronary angioplasty implant and graft; I25.2 Old myocardial infarction; Z91.14 Patient's other noncompliance with medication regimen
CPT/HCPCS: 36415; 36600; 71045; 71275; 80048; 80053; 81003; 82375; 82805; 82962; 83036; 83735; 83880; 84484; 85025; 87116; 87426; 93005; 97162; 97166; 99285; C1893; J0360; J0456; J0696; J1630; J1650; J1815; J1940; J2060; J3475; J3480; J7060; Q9967; U0003; U0005

== ENCOUNTER 2021-04-23 13:16 | Inpatient (IN) | payer BC ==
[~2021-04-23] VITALS: Ht 157.5 cm; Wt 58.1 kg
[~2021-04-23 13:16] MED LIST changes: -COR3 PO
[2021-04-23 14:37] LABS: BASOPHILS % 1.3 % (0.0-2.0); EOSINOPHILS % 0.2 % (0.0-5.0); HEMATOCRIT. 40.2 % (36.0-48.0); HEMOGLOBIN. 13.4 g/dL (12.0-16.0); LYMPHOCYTES % 28.5 % (20.0-50.0); MEAN CORPUSCULAR HEMOGLOBIN 31.1 pg (28.0-32.0); MEAN PLATELET VOLUME 9.3 fl (7.4-10.4); MONOCYTES % 7.6 % (2.0-8.0); NEUTROPHILS % 62.4 % (40.0-76.0); PLATELET 302 x1000/uL (130-400); RED BLOOD CELL COUNT 4.32 mill/uL (4.2-5.4); RED CELL DISTRIBUTION WIDTH 16.8 % (11.6-14.6)
[2021-04-23 14:40] LABS: CLARITY URINE CLEAR (CLEAR); COLOR URINE YELLOW (YELLOW); KETONES URINE NEGATIVE (NEGATIVE); LEUKOCYTE ESTERASE URINE NEGATIVE (NEGATIVE); NITRITE URINE NEGATIVE (NEGATIVE); OCCULT BLOOD URINE NEGATIVE (NEGATIVE); PH URINE 7.5 (4.5-8.0); PROTEIN URINE 2+ (NEGATIVE); SPECIFIC GRAVITY URINE 1.019 (1.005-1.030)
[2021-04-23 14:44] LABS: CHLORIDE 103 mEq/L (98-107)
[2021-04-23] MEDS ORDERED: HYDROCODONE/ACETAMINOPHEN 5/325MG TABLET PO PRN (19:30)
[2021-04-23] MEDS ORDERED: ALBUTEROL (0.083%) 2.5MG/3ML NEB HHN PRN (19:30)
[2021-04-23] MEDS ORDERED: ACETAMINOPHEN 650MG/20.3ML UDC GT PRN ×2 (19:30)
[2021-04-23] MEDS ORDERED: ONDANSETRON HCL 4MG/2ML INJ IV PRN (19:30)
[2021-04-23] MEDS ORDERED: ACETAMINOPHEN 650MG SUPP PR PRN ×2 (19:30)
[2021-04-23] MEDS ORDERED: ACETAMINOPHEN 325MG TABLET PO PRN (19:30)
[2021-04-23] MEDS ORDERED: MAGNESIUM/ALUMINUM HYDROXIDE/SIMETHICONE 30ML UDC PO PRN (19:30)
[2021-04-23] MEDS ORDERED: DOCUSATE SODIUM 100MG CAPSULE PO PRN (19:30)
[2021-04-23] MEDS ORDERED: CEFTRIAXONE 1 G PREMIX 50 ML IV SCH (19:30)
[2021-04-23] MEDS ORDERED: GUAIFENESIN 200MG/10ML SUGAR FREE UDC PO PRN (19:30)
[2021-04-23] MEDS ORDERED: CEFEPIME 2,000 MG in DEXT 5% WATER 100 ML IV SCH (20:00)
[2021-04-23] MEDS ORDERED: AZITHROMYCIN 500 MG in DEXT 5% WATER 250 ML IV SCH (20:00)
[2021-04-23] MEDS: FAMOTIDINE 20MG/2ML VIAL IV SCH (20:16)
[2021-04-23] MEDS: ENOXAPARIN 40MG/0.4ML SYR SUBCUT SCH (20:17)
[2021-04-23] MEDS: CARVEDILOL 12.5MG TABLET PO SCH (21:00)
[2021-04-23] MEDS: BLOOD SUGAR DIAGNOSTIC STRIP TEST SCH (21:35)
[2021-04-23] MEDS: INSULIN LISPRO 100 UNITS/ML SUBCUT SCH (21:38)
[2021-04-23 23:30] VITALS: BP 140/59
[2021-04-24] VITALS: BP 140/59
[2021-04-24] MEDS: ALBUTEROL (0.083%) 2.5MG/3ML NEB HHN SCH ×5 (01:35→20:33)
[2021-04-24] MEDS: AZITHROMYCIN 500 MG in DEXT 5% WATER 250 ML IV SCH (02:13)
[2021-04-24 04:00] VITALS: BP 139/59
[2021-04-24] MEDS: BLOOD SUGAR DIAGNOSTIC STRIP TEST SCH ×4 (06:41→20:25)
[2021-04-24] MEDS: INSULIN LISPRO 100 UNITS/ML SUBCUT SCH ×4 (06:58→20:25)
[2021-04-24 07:14] LABS: BASOPHILS % 0.8 % (0.0-2.0); EOSINOPHILS % 0.1 % (0.0-5.0); HEMATOCRIT. 38.5 % (36.0-48.0); HEMOGLOBIN. 12.7 g/dL (12.0-16.0); LYMPHOCYTES % 26.5 % (20.0-50.0); MEAN CORPUSCULAR HEMOGLOBIN 31.1 pg (28.0-32.0); MEAN CORPUSCULAR VOLUME 94.4 fL (81.0-99.0); MEAN PLATELET VOLUME 9.2 fl (7.4-10.4); MONOCYTES % 9.1 % (2.0-8.0); NEUTROPHILS % 63.5 % (40.0-76.0); PLATELET 241 x1000/uL (130-400); RED BLOOD CELL COUNT 4.08 mill/uL (4.2-5.4); RED CELL DISTRIBUTION WIDTH 16.7 % (11.6-14.6)
[2021-04-24 07:33] LABS: CHLORIDE 104 mEq/L (98-107)
[2021-04-24 07:45] LABS: CREATINE KINASE 98 IU/L (26-192); CREATINE KINASE MB FRACTION 3.4 ng/mL (0.5-3.6); LDL CHOLESTEROL 109 mg/dL (5-100)
[2021-04-24 07:46] LABS: HDL CHOLESTEROL 49 mg/dL (40-59)
[2021-04-24 08:00] VITALS: BP 163/81
[2021-04-24] MEDS ORDERED: NALOXONE HCL 0.4MG/ML VIAL IV PRN (08:00)
[2021-04-24] MEDS ORDERED: DEXAMETHASONE 10 MG/ML VIAL IV SCH (09:00)
[2021-04-24 09:03] LABS: T4 FREE 1.29 ng/dL (0.76-1.46)
[2021-04-24] MEDS: ENOXAPARIN 40MG/0.4ML SYR SUBCUT SCH ×2 (09:07→20:00)
[2021-04-24] MEDS: FAMOTIDINE 20MG/2ML VIAL IV SCH (09:07)
[2021-04-24] MEDS: CARVEDILOL 12.5MG TABLET PO SCH (09:08)
[2021-04-24] MEDS: ASPIRIN 81MG TABLET PO SCH (09:08)
[2021-04-24] MEDS ORDERED: POTASSIUM CHLORIDE 20MEQ TABLET SR PO NR ×2 (10:25→21:00)
[2021-04-24 12:00] VITALS: BP 133/66
[2021-04-24 15:38] LABS: CREATINE KINASE MB FRACTION 3.5 ng/mL (0.5-3.6)
[2021-04-24] MEDS: FUROSEMIDE 40MG/4ML VIAL IVP SCH ×2 (15:59→16:51)
[2021-04-24] MEDS: CEFEPIME 2,000 MG in DEXT 5% WATER 100 ML IV SCH (15:59)
[2021-04-24 16:00] VITALS: BP 134/62
[2021-04-24] MEDS: LOSARTAN POTASSIUM 25 MG TABLET PO SCH ×2 (16:00→16:52)
[2021-04-24] MEDS: AMLODIPINE 2.5MG TABLET PO SCH ×2 (16:00→20:21)
[2021-04-24] MEDS: BACITRACIN 15GM TUBE TOP SCH (16:01)
[2021-04-24 20:00] VITALS: BP 184/82
[2021-04-24] MEDS ORDERED: AZITHROMYCIN 500 MG in DEXT 5% WATER 250 ML IV SCH (20:00)
[2021-04-25] MEDS: ALBUTEROL (0.083%) 2.5MG/3ML NEB HHN SCH ×3 (01:21→20:22)
[2021-04-25] MEDS: CEFEPIME 2,000 MG in DEXT 5% WATER 100 ML IV SCH ×2 (01:32→12:37)
[2021-04-25 01:34] VITALS: BP 142/88
[2021-04-25] MEDS: AZITHROMYCIN 500 MG in DEXT 5% WATER 250 ML IV SCH (02:08)
[2021-04-25 04:00] VITALS: BP 146/78
[2021-04-25] MEDS: BLOOD SUGAR DIAGNOSTIC STRIP TEST SCH ×4 (06:38→21:00)
[2021-04-25] MEDS: FUROSEMIDE 40MG/4ML VIAL IVP SCH ×2 (06:39→16:52)
[2021-04-25 08:00] VITALS: BP_SYST 136; BP_SYST 148; BP_DIAS 76; BP_DIAS 98
[2021-04-25] MEDS: POTASSIUM CHLORIDE 20MEQ TABLET SR PO SCH ×2 (08:09→16:52)
[2021-04-25] MEDS: FAMOTIDINE 20MG/2ML VIAL IV SCH (08:09)
[2021-04-25] MEDS: ASPIRIN 81MG TABLET PO SCH (08:09)
[2021-04-25] MEDS: AMLODIPINE 2.5MG TABLET PO SCH ×2 (08:09→21:00)
[2021-04-25] MEDS: ENOXAPARIN 40MG/0.4ML SYR SUBCUT SCH ×2 (08:10→20:00)
[2021-04-25] MEDS: LOSARTAN POTASSIUM 25 MG TABLET PO SCH ×2 (08:12→16:52)
[2021-04-25] MEDS: BACITRACIN 15GM TUBE TOP SCH (08:12)
[2021-04-25] MEDS: INSULIN LISPRO 100 UNITS/ML SUBCUT SCH ×4 (08:13→21:00)
[2021-04-25] MEDS ORDERED: LIDOCAINE HCL 1% 20ML VIAL (Pyxis) INJ INFIL NR (11:10)
[2021-04-25 12:00] VITALS: BP 133/70
[2021-04-25] MEDS: RISPERIDONE 0.25MG TABLET PO SCH (12:37)
[2021-04-25 16:00] VITALS: BP 130/64
[2021-04-25 20:00] VITALS: BP 145/69
[2021-04-25 20:38] LABS: BASOPHILS % 1.3 % (0.0-2.0); EOSINOPHILS % 0.5 % (0.0-5.0); HEMATOCRIT. 37.9 % (36.0-48.0); HEMOGLOBIN. 12.7 g/dL (12.0-16.0); LYMPHOCYTES % 29.5 % (20.0-50.0); MEAN CORPUSCULAR HEMOGLOBIN 31.5 pg (28.0-32.0); MEAN CORPUSCULAR VOLUME 94.1 fL (81.0-99.0); MEAN PLATELET VOLUME 9.2 fl (7.4-10.4); MONOCYTES % 8.5 % (2.0-8.0); NEUTROPHILS % 60.2 % (40.0-76.0); PLATELET 249 x1000/uL (130-400); RED BLOOD CELL COUNT 4.02 mill/uL (4.2-5.4); RED CELL DISTRIBUTION WIDTH 17.2 % (11.6-14.6)
[2021-04-25 20:47] LABS: CHLORIDE 106 mEq/L (98-107)
[2021-04-26] VITALS: BP 141/69
[2021-04-26] MEDS: CEFEPIME 2,000 MG in DEXT 5% WATER 100 ML IV SCH ×2 (01:23→13:52)
[2021-04-26] MEDS: ALBUTEROL (0.083%) 2.5MG/3ML NEB HHN SCH ×4 (01:50→21:58)
[2021-04-26] MEDS: BLOOD SUGAR DIAGNOSTIC STRIP TEST SCH ×4 (06:08→20:27)
[2021-04-26] MEDS: FUROSEMIDE 40MG/4ML VIAL IVP SCH ×2 (06:08→17:12)
[2021-04-26] MEDS: INSULIN LISPRO 100 UNITS/ML SUBCUT SCH ×4 (06:56→20:27)
[2021-04-26 07:06] LABS: C REACTIVE PROTEIN QUANT 8.3 mg/L (0.0-3.0)
[2021-04-26 08:00] VITALS: BP 164/111
[2021-04-26] MEDS: BACITRACIN 15GM TUBE TOP SCH (09:00)
[2021-04-26 12:00] VITALS: BP 126/65
[2021-04-26] MEDS: FAMOTIDINE 20MG TABLET PO SCH (12:53)
[2021-04-26] MEDS: LOSARTAN POTASSIUM 25 MG TABLET PO SCH ×2 (12:53→17:12)
[2021-04-26] MEDS: AZITHROMYCIN 500 MG TABLET PO SCH (12:53)
[2021-04-26] MEDS: POTASSIUM CHLORIDE 20MEQ TABLET SR PO SCH ×2 (12:53→17:12)
[2021-04-26] MEDS: RISPERIDONE 0.25MG TABLET PO SCH (12:53)
[2021-04-26] MEDS: ASPIRIN 81MG TABLET PO SCH (12:53)
[2021-04-26] MEDS: ENOXAPARIN 40MG/0.4ML SYR SUBCUT SCH ×2 (12:54→20:00)
[2021-04-26] MEDS: AMLODIPINE 2.5MG TABLET PO SCH ×2 (12:54→20:27)
[2021-04-26 16:00] VITALS: BP 127/65
[2021-04-26] MEDS ORDERED: AMLO2.5T45 PO (17:53)
[2021-04-26] MEDS ORDERED: FAMO20TA8 PO (17:53)
[2021-04-26] MEDS ORDERED: LOSA25TA3 PO (17:53)
[2021-04-26] MEDS ORDERED: ASPI-1160 PO (17:53)
[2021-04-26] MEDS ORDERED: ALBU2.5V13 HHN (17:53)
[2021-04-26] MEDS ORDERED: COR3 PO (17:53)
[2021-04-26] MEDS: DEXTROSE 50% WATER 50ML SYRINGE IV PRN ×2 (19:56→22:39)
[2021-04-26 20:00] VITALS: BP 122/51
[2021-04-26] MEDS: CARVEDILOL 3.125 MG TABLET PO SCH (20:26)
[2021-04-26] MEDS: ATORVASTATIN CALCIUM 40MG TABLET PO SCH (20:27)
[2021-04-27] VITALS: BP 145/91
[2021-04-27] MEDS: CEFEPIME 2,000 MG in DEXT 5% WATER 100 ML IV SCH ×2 (00:41→13:24)
[2021-04-27] MEDS: ALBUTEROL (0.083%) 2.5MG/3ML NEB HHN SCH ×4 (02:15→20:45)
[2021-04-27 04:00] VITALS: BP 130/60
[2021-04-27] MEDS: BLOOD SUGAR DIAGNOSTIC STRIP TEST SCH ×4 (05:53→21:00)
[2021-04-27] MEDS: FUROSEMIDE 40MG/4ML VIAL IVP SCH ×2 (06:33→17:56)
[2021-04-27] MEDS: INSULIN LISPRO 100 UNITS/ML SUBCUT SCH ×4 (06:34→21:00)
[2021-04-27 07:12] LABS: CHLORIDE 102 mEq/L (98-107)
[2021-04-27 07:38] LABS: INR 1.1; PROTHROMBIN TIME 11.3 sec (9.6-11.0)
[2021-04-27 07:52] LABS: BASOPHILS % 0.7 % (0.0-2.0); HEMATOCRIT. 39.4 % (36.0-48.0); HEMOGLOBIN. 12.9 g/dL (12.0-16.0); LYMPHOCYTES % 20.1 % (20.0-50.0); MEAN CORPUSCULAR VOLUME 94.8 fL (81.0-99.0); MEAN PLATELET VOLUME 9.4 fl (7.4-10.4); MONOCYTES % 6.9 % (2.0-8.0); NEUTROPHILS % 72.3 % (40.0-76.0); PLATELET 232 x1000/uL (130-400); RED BLOOD CELL COUNT 4.15 mill/uL (4.2-5.4); RED CELL DISTRIBUTION WIDTH 17.3 % (11.6-14.6)
[2021-04-27 08:00] VITALS: BP 135/73
[2021-04-27] MEDS: RISPERIDONE 0.25MG TABLET PO SCH (10:09)
[2021-04-27] MEDS: AMLODIPINE 2.5MG TABLET PO SCH ×2 (10:10→22:10)
[2021-04-27] MEDS: LOSARTAN POTASSIUM 25 MG TABLET PO SCH ×2 (10:10→17:56)
[2021-04-27] MEDS: POTASSIUM CHLORIDE 20MEQ TABLET SR PO SCH ×2 (10:10→17:56)
[2021-04-27] MEDS: FAMOTIDINE 20MG TABLET PO SCH (10:11)
[2021-04-27] MEDS: ASPIRIN 81MG TABLET PO SCH (10:11)
[2021-04-27] MEDS: CARVEDILOL 3.125 MG TABLET PO SCH ×2 (10:11→22:10)
[2021-04-27] MEDS: BACITRACIN 15GM TUBE TOP SCH (10:12)
[2021-04-27 12:00] VITALS: BP 125/66
[2021-04-27] MEDS ORDERED: INSULIN LISPRO 100 UNITS/ML SUBCUT PRN (13:00)
[2021-04-27] MEDS: AZITHROMYCIN 500 MG TABLET PO SCH (13:24)
[2021-04-27] MEDS: ENOXAPARIN 40MG/0.4ML SYR SUBCUT SCH ×2 (13:24→22:09)
[2021-04-27 16:30] VITALS: BP 138/61
[2021-04-27 20:00] VITALS: BP 139/68
[2021-04-27] MEDS: ATORVASTATIN CALCIUM 40MG TABLET PO SCH (22:10)
[2021-04-27] MEDS: DEXTROSE 50% WATER 50ML SYRINGE IV PRN (22:22)
[2021-04-28] VITALS (7 sets, daily range): BP systolic 115–173; BP diastolic 49–86
[2021-04-28] MEDS: CEFEPIME 2,000 MG in DEXT 5% WATER 100 ML IV SCH ×2 (00:50→12:31)
[2021-04-28] MEDS: ALBUTEROL (0.083%) 2.5MG/3ML NEB HHN SCH ×4 (02:33→20:15)
[2021-04-28] MEDS: BLOOD SUGAR DIAGNOSTIC STRIP TEST SCH ×4 (06:06→20:45)
[2021-04-28] MEDS: FUROSEMIDE 40MG/4ML VIAL IVP SCH ×2 (06:07→17:09)
[2021-04-28] MEDS: INSULIN LISPRO 100 UNITS/ML SUBCUT SCH ×4 (06:07→20:45)
[2021-04-28] MEDS ORDERED: LIDOCAINE HCL 1% 20ML VIAL (Pyxis) INJ INFIL NR (06:30)
[2021-04-28] MEDS ORDERED: LIDOCAINE HCL 2% JELLY 5ML TOP NR (08:00)
[2021-04-28] MEDS: AMLODIPINE 2.5MG TABLET PO SCH ×2 (09:29→20:42)
[2021-04-28] MEDS: LOSARTAN POTASSIUM 25 MG TABLET PO SCH ×2 (09:29→17:09)
[2021-04-28] MEDS: RISPERIDONE 0.25MG TABLET PO SCH (09:29)
[2021-04-28] MEDS: FAMOTIDINE 20MG TABLET PO SCH (09:29)
[2021-04-28] MEDS: ASPIRIN 81MG TABLET PO SCH (09:29)
[2021-04-28] MEDS: BACITRACIN 15GM TUBE TOP SCH (09:30)
[2021-04-28] MEDS: CARVEDILOL 3.125 MG TABLET PO SCH ×2 (09:30→20:42)
[2021-04-28] MEDS: POTASSIUM CHLORIDE 20MEQ TABLET SR PO SCH ×2 (09:30→17:09)
[2021-04-28] MEDS: ENOXAPARIN 40MG/0.4ML SYR SUBCUT SCH (12:31)
[2021-04-28] MEDS: AZITHROMYCIN 500 MG TABLET PO SCH (12:31)
[2021-04-28] MEDS: ATORVASTATIN CALCIUM 40MG TABLET PO SCH (20:41)
[2021-04-29] VITALS: BP 142/80
[2021-04-29] MEDS: ALBUTEROL (0.083%) 2.5MG/3ML NEB HHN SCH ×4 (01:13→20:35)
[2021-04-29 04:00] VITALS: BP 146/76
[2021-04-29] MEDS: FUROSEMIDE 40MG/4ML VIAL IVP SCH ×2 (06:23→19:04)
[2021-04-29] MEDS: BLOOD SUGAR DIAGNOSTIC STRIP TEST SCH ×4 (06:23→21:00)
[2021-04-29] MEDS: INSULIN LISPRO 100 UNITS/ML SUBCUT SCH ×4 (06:57→22:18)
[2021-04-29 08:00] VITALS: BP 121/76
[2021-04-29] MEDS: BACITRACIN 15GM TUBE TOP SCH (09:00)
[2021-04-29] MEDS: LOSARTAN POTASSIUM 25 MG TABLET PO SCH ×2 (09:50→19:04)
[2021-04-29] MEDS: ASPIRIN 81MG TABLET PO SCH (09:50)
[2021-04-29] MEDS: POTASSIUM CHLORIDE 20MEQ TABLET SR PO SCH ×2 (09:51→19:04)
[2021-04-29] MEDS: AMLODIPINE 2.5MG TABLET PO SCH ×2 (09:57→22:02)
[2021-04-29] MEDS: FAMOTIDINE 20MG TABLET PO SCH (09:57)
[2021-04-29] MEDS: RISPERIDONE 0.25MG TABLET PO SCH (09:58)
[2021-04-29] MEDS: ENOXAPARIN 40MG/0.4ML SYR SUBCUT SCH (09:59)
[2021-04-29 12:00] VITALS: BP 122/65
[2021-04-29] MEDS: CARVEDILOL 3.125 MG TABLET PO SCH ×2 (15:16→22:02)
[2021-04-29 20:00] VITALS: BP 122/68
[2021-04-29] MEDS: ATORVASTATIN CALCIUM 40MG TABLET PO SCH (22:02)
[2021-04-30] VITALS: BP 133/59
[2021-04-30] MEDS: ALBUTEROL (0.083%) 2.5MG/3ML NEB HHN SCH ×3 (02:25→12:46)
[2021-04-30 04:00] VITALS: BP 151/64
[2021-04-30] MEDS: INSULIN LISPRO 100 UNITS/ML SUBCUT SCH ×4 (07:10→20:35)
[2021-04-30] MEDS: BLOOD SUGAR DIAGNOSTIC STRIP TEST SCH ×4 (07:26→20:29)
[2021-04-30] MEDS: FUROSEMIDE 40MG/4ML VIAL IVP SCH ×2 (07:30→18:10)
[2021-04-30 08:00] VITALS: BP 146/76
[2021-04-30] MEDS: RISPERIDONE 0.25MG TABLET PO SCH (08:56)
[2021-04-30] MEDS: POTASSIUM CHLORIDE 20MEQ TABLET SR PO SCH ×2 (08:56→18:09)
[2021-04-30] MEDS: BACITRACIN 15GM TUBE TOP SCH (08:56)
[2021-04-30] MEDS: AMLODIPINE 2.5MG TABLET PO SCH ×2 (08:57→20:37)
[2021-04-30] MEDS: CARVEDILOL 3.125 MG TABLET PO SCH ×2 (08:57→20:37)
[2021-04-30] MEDS: ASPIRIN 81MG TABLET PO SCH (08:57)
[2021-04-30] MEDS: LOSARTAN POTASSIUM 25 MG TABLET PO SCH ×2 (08:57→18:09)
[2021-04-30] MEDS: ENOXAPARIN 40MG/0.4ML SYR SUBCUT SCH (08:58)
[2021-04-30] MEDS: FAMOTIDINE 20MG TABLET PO SCH (09:03)
[2021-04-30 12:00] VITALS: BP 131/50
[2021-04-30 16:00] VITALS: BP 136/79
[2021-04-30] MEDS: METFORMIN HCL 500MG TABLET PO SCH (18:12)
[2021-04-30] MEDS: ATORVASTATIN CALCIUM 40MG TABLET PO SCH (20:36)
[2021-04-30 20:51] VITALS: BP 142/76
[2021-05-01] VITALS: BP 119/55
[2021-05-01] MEDS: INSULIN LISPRO 100 UNITS/ML SUBCUT SCH ×4 (07:09→20:38)
[2021-05-01] MEDS: FUROSEMIDE 40MG/4ML VIAL IVP SCH ×2 (07:09→17:15)
[2021-05-01] MEDS: METFORMIN HCL 500MG TABLET PO SCH ×2 (07:09→17:10)
[2021-05-01] MEDS: BLOOD SUGAR DIAGNOSTIC STRIP TEST SCH ×4 (07:09→20:32)
[2021-05-01 08:00] VITALS: BP 137/60
[2021-05-01] MEDS: ALBUTEROL (0.083%) 2.5MG/3ML NEB HHN SCH ×3 (08:22→22:05)
[2021-05-01] MEDS: RISPERIDONE 0.25MG TABLET PO SCH (09:00)
[2021-05-01] MEDS: LOSARTAN POTASSIUM 25 MG TABLET PO SCH ×2 (09:00→17:00)
[2021-05-01] MEDS: ASPIRIN 81MG TABLET PO SCH (09:00)
[2021-05-01] MEDS: FAMOTIDINE 20MG TABLET PO SCH (09:00)
[2021-05-01] MEDS: ENOXAPARIN 40MG/0.4ML SYR SUBCUT SCH (09:00)
[2021-05-01] MEDS: CARVEDILOL 3.125 MG TABLET PO SCH ×2 (09:00→20:38)
[2021-05-01] MEDS: BACITRACIN 15GM TUBE TOP SCH (09:00)
[2021-05-01] MEDS: AMLODIPINE 2.5MG TABLET PO SCH ×2 (09:00→20:39)
[2021-05-01] MEDS: POTASSIUM CHLORIDE 20MEQ TABLET SR PO SCH ×2 (09:00→17:00)
[2021-05-01] MEDS: ACETAMINOPHEN 325MG TABLET PO PRN (10:51)
[2021-05-01 12:00] VITALS: BP 143/76
[2021-05-01 16:00] VITALS: BP 142/46
[2021-05-01 20:00] VITALS: BP 134/48
[2021-05-01] MEDS: ATORVASTATIN CALCIUM 40MG TABLET PO SCH (20:39)
[2021-05-02] VITALS: BP 119/54
[2021-05-02] MEDS: ALBUTEROL (0.083%) 2.5MG/3ML NEB HHN SCH ×4 (03:42→20:26)
[2021-05-02 04:00] VITALS: BP 147/78
[2021-05-02] MEDS: BLOOD SUGAR DIAGNOSTIC STRIP TEST SCH ×4 (06:30→21:38)
[2021-05-02] MEDS: FUROSEMIDE 40MG/4ML VIAL IVP SCH ×3 (06:32→17:39)
[2021-05-02] MEDS: METFORMIN HCL 500MG TABLET PO SCH ×3 (06:33→17:40)
[2021-05-02] MEDS: INSULIN LISPRO 100 UNITS/ML SUBCUT SCH ×4 (06:33→21:42)
[2021-05-02 08:00] VITALS: BP 138/71
[2021-05-02] MEDS: ENOXAPARIN 40MG/0.4ML SYR SUBCUT SCH (08:39)
[2021-05-02] MEDS: CARVEDILOL 3.125 MG TABLET PO SCH ×2 (08:39→21:24)
[2021-05-02] MEDS: RISPERIDONE 0.25MG TABLET PO SCH ×2 (08:40→21:25)
[2021-05-02] MEDS: ASPIRIN 81MG TABLET PO SCH (08:40)
[2021-05-02] MEDS: POTASSIUM CHLORIDE 20MEQ TABLET SR PO SCH ×3 (08:40→17:39)
[2021-05-02] MEDS: FAMOTIDINE 20MG TABLET PO SCH (08:40)
[2021-05-02] MEDS: LOSARTAN POTASSIUM 25 MG TABLET PO SCH ×3 (08:40→17:40)
[2021-05-02] MEDS: AMLODIPINE 2.5MG TABLET PO SCH ×2 (08:40→21:25)
[2021-05-02] MEDS: BACITRACIN 15GM TUBE TOP SCH (08:46)
[2021-05-02 12:00] VITALS: BP 130/71
[2021-05-02 16:00] VITALS: BP 167/80
[2021-05-02] MEDS: ATORVASTATIN CALCIUM 40MG TABLET PO SCH (21:24)
[2021-05-02] MEDS: ACETAMINOPHEN 325MG TABLET PO PRN (21:25)
[2021-05-02 22:06] VITALS: BP 131/59
[2021-05-03] MEDS: ALBUTEROL (0.083%) 2.5MG/3ML NEB HHN SCH ×4 (02:12→21:17)
[2021-05-03 04:00] VITALS: BP 138/69
[2021-05-03] MEDS: FUROSEMIDE 40MG/4ML VIAL IVP SCH ×2 (05:31→16:48)
[2021-05-03] MEDS: BLOOD SUGAR DIAGNOSTIC STRIP TEST SCH ×4 (05:32→21:28)
[2021-05-03] MEDS: METFORMIN HCL 500MG TABLET PO SCH ×2 (06:26→16:46)
[2021-05-03] MEDS: INSULIN LISPRO 100 UNITS/ML SUBCUT SCH ×4 (06:32→22:22)
[2021-05-03 07:32] LABS: EOSINOPHILS % 3.7 % (0.0-5.0); HEMATOCRIT. 40.1 % (36.0-48.0); HEMOGLOBIN. 13.1 g/dL (12.0-16.0); LYMPHOCYTES % 31.7 % (20.0-50.0); MEAN CORPUSCULAR HEMOGLOBIN 31.6 pg (28.0-32.0); MEAN CORPUSCULAR VOLUME 96.6 fL (81.0-99.0); MONOCYTES % 8.1 % (2.0-8.0); NEUTROPHILS % 55.5 % (40.0-76.0); RED BLOOD CELL COUNT 4.15 mill/uL (4.2-5.4); RED CELL DISTRIBUTION WIDTH 17.4 % (11.6-14.6)
[2021-05-03 07:45] LABS: CHLORIDE 100 mEq/L (98-107)
[2021-05-03 08:00] VITALS: BP 156/72
[2021-05-03] MEDS: LOSARTAN POTASSIUM 25 MG TABLET PO SCH ×2 (09:19→16:48)
[2021-05-03] MEDS: POTASSIUM CHLORIDE 20MEQ TABLET SR PO SCH ×2 (09:19→16:46)
[2021-05-03] MEDS: ENOXAPARIN 40MG/0.4ML SYR SUBCUT SCH (09:19)
[2021-05-03] MEDS: ASPIRIN 81MG TABLET PO SCH (09:19)
[2021-05-03] MEDS: FAMOTIDINE 20MG TABLET PO SCH (09:19)
[2021-05-03] MEDS: CARVEDILOL 3.125 MG TABLET PO SCH ×2 (09:20→21:27)
[2021-05-03] MEDS: RISPERIDONE 0.25MG TABLET PO SCH ×2 (09:20→16:46)
[2021-05-03] MEDS: BACITRACIN 15GM TUBE TOP SCH (09:20)
[2021-05-03] MEDS: AMLODIPINE 2.5MG TABLET PO SCH ×2 (09:20→21:27)
[2021-05-03 12:00] VITALS: BP 127/60
[2021-05-03 14:48] LABS: MEAN PLATELET VOLUME 9.7 fl (7.4-10.4); PLATELET 218 x1000/uL (130-400)
[2021-05-03 16:00] VITALS: BP 130/54
[2021-05-03 18:42] VITALS: BP 127/60
[2021-05-03 20:00] VITALS: BP 148/57
[2021-05-03] MEDS: ATORVASTATIN CALCIUM 40MG TABLET PO SCH (21:26)
[2021-05-04] VITALS: BP 140/59
[2021-05-04] MEDS: ALBUTEROL (0.083%) 2.5MG/3ML NEB HHN SCH ×2 (00:57→09:32)
[2021-05-04 04:00] VITALS: BP 127/89
[2021-05-04] MEDS: INSULIN LISPRO 100 UNITS/ML SUBCUT SCH (06:20)
[2021-05-04] MEDS: BLOOD SUGAR DIAGNOSTIC STRIP TEST SCH (06:40)
[2021-05-04] MEDS: FUROSEMIDE 40MG/4ML VIAL IVP SCH (07:15)
[2021-05-04 08:00] VITALS: BP 153/82
[2021-05-04] MEDS: BACITRACIN 15GM TUBE TOP SCH (09:00)
[2021-05-04] MEDS: ASPIRIN 81MG TABLET PO SCH (09:10)
[2021-05-04] MEDS: POTASSIUM CHLORIDE 20MEQ TABLET SR PO SCH (09:10)
[2021-05-04] MEDS: ENOXAPARIN 40MG/0.4ML SYR SUBCUT SCH (09:10)
[2021-05-04] MEDS: METFORMIN HCL 500MG TABLET PO SCH (09:10)
[2021-05-04] MEDS: FAMOTIDINE 20MG TABLET PO SCH (09:10)
[2021-05-04] MEDS: AMLODIPINE 2.5MG TABLET PO SCH (09:11)
[2021-05-04] MEDS: RISPERIDONE 0.25MG TABLET PO SCH (09:11)
[2021-05-04] MEDS: LOSARTAN POTASSIUM 25 MG TABLET PO SCH (09:11)
[2021-05-04] MEDS: CARVEDILOL 3.125 MG TABLET PO SCH (09:11)
[2021-05-04] MEDS ORDERED: FUROSEMIDE 40MG TABLET PO NR (09:30)
== END 2021-05-04 10:30 | DRG 871 ==
LOC: ER 13:16 → 7EST 15:35 → ENRESERV 20:14 → CANRESERV 20:14 → ENRESERV 21:30
PROVIDERS: ADMIT Family Medicine; ATTEND Family Medicine
PROC: 0HBRXZZ Excision of Toe Nail, External Approach (ICD-10-PCS; principal; 2021-04-25)
PROC: 0HBRXZZ Excision of Toe Nail, External Approach (ICD-10-PCS; 2021-04-25)
PROC: 0HBRXZZ Excision of Toe Nail, External Approach (ICD-10-PCS; 2021-04-25)
PROC: 0HBRXZZ Excision of Toe Nail, External Approach (ICD-10-PCS; 2021-04-25)
PROC: 0HBRXZZ Excision of Toe Nail, External Approach (ICD-10-PCS; 2021-04-25)
PROC: 0HBRXZZ Excision of Toe Nail, External Approach (ICD-10-PCS; 2021-04-25)
PROC: 0HBRXZZ Excision of Toe Nail, External Approach (ICD-10-PCS; 2021-04-25)
PROC: 0HBRXZZ Excision of Toe Nail, External Approach (ICD-10-PCS; 2021-04-25)
PROC: 0HBRXZZ Excision of Toe Nail, External Approach (ICD-10-PCS; 2021-04-25)
PROC: 0HBRXZZ Excision of Toe Nail, External Approach (ICD-10-PCS; 2021-04-25)
PROC: 0HDRXZZ Extraction of Toe Nail, External Approach (ICD-10-PCS; 2021-04-28)
DX: A41.9 Sepsis, unspecified organism (principal); I21.4 Non-ST elevation (NSTEMI) myocardial infarction; J96.01 Acute respiratory failure with hypoxia; J15.9 Unspecified bacterial pneumonia; I50.31 Acute diastolic (congestive) heart failure; J44.0 Chronic obstructive pulmonary disease with (acute) lower respiratory infection; G93.40 Encephalopathy, unspecified; E44.1 Mild protein-calorie malnutrition; I25.10 Atherosclerotic heart disease of native coronary artery without angina pectoris; I25.5 Ischemic cardiomyopathy; I27.20 Pulmonary hypertension, unspecified; I44.4 Left anterior fascicular block; E11.51 Type 2 diabetes mellitus with diabetic peripheral angiopathy without gangrene; E78.5 Hyperlipidemia, unspecified; E87.6 Hypokalemia; I87.8 Other specified disorders of veins; F03.90 Unspecified dementia, unspecified severity, without behavioral disturbance, psychotic disturbance, mood disturbance, and anxiety; L85.3 Xerosis cutis; X58.XXXA Exposure to other specified factors, initial encounter; R74.01 Elevation of levels of liver transaminase levels; S91.202A Unspecified open wound of left great toe with damage to nail, initial encounter; L89.156 Pressure-induced deep tissue damage of sacral region; B35.1 Tinea unguium; Z20.822 Contact with and (suspected) exposure to COVID-19; I07.1 Rheumatic tricuspid insufficiency; I11.0 Hypertensive heart disease with heart failure; I66.02 Occlusion and stenosis of left middle cerebral artery; L60.2 Onychogryphosis; S91.219A Laceration without foreign body of unspecified toe(s) with damage to nail, initial encounter; Z91.14 Patient's other noncompliance with medication regimen; Z74.01 Bed confinement status; Z86.16 Personal history of COVID-19; Z79.899 Other long term (current) drug therapy; Z28.3 Underimmunization status; Z95.5 Presence of coronary angioplasty implant and graft; Y93.89 Activity, other specified; Y92.89 Other specified places as the place of occurrence of the external cause; Y99.8 Other external cause status
CPT/HCPCS: 36415; 71045; 80048; 80053; 80061; 80076; 81003; 82040; 82550; 82553; 82728; 82962; 83036; 83605; 83735; 83880; 84134; 84145; 84439; 84443; 84484; 85025; 86140; 87426; 92610; 93005; 94640; 97165; 99285; C1893; J0456; J0692; J0696; J1650; J1815; J1940; J3490; J7040; J7060